=== PATIENT | female | born 1935 | race Caucasian/White ===

== ENCOUNTER → 2019-09-02 | Outpatient (CLI) | payer OTHER ==
[~2019-09-02] MED LIST: B12,B-12,B 12500 MC1 PO; COUMADIN6 MG PO; Coumadin10 MG PO; DIGOXIN125 MCG PO; DILTIAZEM CD180 MG PO; JANTOVEN5 MG PO; LASIX20 MG PO; LOPRESSOR100 M1 PO; LOPRESSOR50 M1 PO; LOVASTATIN40 MG PO; MIRTAZAPINE15 M2 PO; NAMENDA-5 PO; RIVASTIGMINE1 EAC1 T; SYNTHROID,LEVO75 MCG PO; SYNTHROID,LEVO88 MCG PO; VIBRAMYCIN100 MG PO; VITAMIN D5000 UNI1 PO; ZANTAC 2525 MG PO; ZESTRIL10 MG PO; ZOCOR20 MG PO
[2019-09-02 09:53] LABS: INTERNATIONAL NORM RATIO 1.8 (2.0-3.5)
== END | disposition home or self-care (01) ==
LOC: LAB 00:08
PROVIDERS: Family Medicine
DX: I48.0 Paroxysmal atrial fibrillation (principal)

== ENCOUNTER → 2019-11-25 | Outpatient (CLI) | payer OTHER | END | disposition home or self-care (01) | LOC: RESCLI 01:21 | DX: I48.91 Unspecified atrial fibrillation (principal); E78.5 Hyperlipidemia, unspecified; R44.3 Hallucinations, unspecified; K21.9 Gastro-esophageal reflux disease without esophagitis; M79.89 Other specified soft tissue disorders; I10 Essential (primary) hypertension; E03.9 Hypothyroidism, unspecified; Z79.899 Other long term (current) drug therapy; Z90.710 Acquired absence of both cervix and uterus; Z98.890 Other specified postprocedural states ==

== ENCOUNTER → 2020-04-12 | Outpatient (CLI) | payer OTHER | END | disposition home or self-care (01) | LOC: RESCLI 05:09 | PROVIDERS: ATTEND Student in an Organized Health Care Education/Training Program | DX: I48.91 Unspecified atrial fibrillation (principal); I10 Essential (primary) hypertension; R44.3 Hallucinations, unspecified; K21.9 Gastro-esophageal reflux disease without esophagitis; E78.5 Hyperlipidemia, unspecified; E03.9 Hypothyroidism, unspecified; M79.89 Other specified soft tissue disorders; L85.3 Xerosis cutis ==

== ENCOUNTER → 2020-06-20 | Outpatient (CLI) | payer OTHER ==
[2020-06-20 11:59] LABS: INTERNATIONAL NORM RATIO 1.9 (2.0-3.5)
== END | disposition home or self-care (01) ==
LOC: LAB 01:23
PROVIDERS: ATTEND Family Medicine
DX: I48.0 Paroxysmal atrial fibrillation (principal); Z79.01 Long term (current) use of anticoagulants

== ENCOUNTER → 2020-12-15 | Outpatient (CLI) | payer OTHER ==
[~2020-12-15] MED LIST changes: +INVEGA3 MG PO; +METOPROLOL SUCC25 M2 PO; +PEPCID20 MG PO
== END | disposition home or self-care (01) ==
LOC: RESCLI 00:40
PROVIDERS: ATTEND Internal Medicine
DX: F33.3 Major depressive disorder, recurrent, severe with psychotic symptoms (principal); F03.90 Unspecified dementia, unspecified severity, without behavioral disturbance, psychotic disturbance, mood disturbance, and anxiety; I48.91 Unspecified atrial fibrillation; E78.5 Hyperlipidemia, unspecified; K21.9 Gastro-esophageal reflux disease without esophagitis; I10 Essential (primary) hypertension; E03.9 Hypothyroidism, unspecified; Z90.710 Acquired absence of both cervix and uterus; Z98.890 Other specified postprocedural states

== ENCOUNTER 2021-02-14 16:25 | Inpatient (IN) | payer OTHER ==
[~2021-02-14] VITALS: Ht 160 cm; Wt 66.7 kg
[~2021-02-14 16:25] MED LIST changes: -INVEGA3 MG PO; -METOPROLOL SUCC25 M2 PO; -PEPCID20 MG PO
[2021-02-14 16:31] VITALS: BP 110/65
[2021-02-14 17:34] LABS: BASO % 0.2 % (0.0-1.0); HEMATOCRIT 42.1 % (37.0-47.0); LYMPH # 0.4 10*3/uL (1.3-4.4); LYMPH % 6.4 % (27.0-41.0); MEAN CELL VOLUME 90.7 fl (81.0-99.0); MEAN CORPUSCULAR HGB 29.7 pg (27.0-31.0); MEAN CORPUSCULAR HGB CONC 32.8 g/dl (33.0-37.0); MEAN PLATELET VOLUME 12.2 fl (9.6-12.3); MONO # 0.5 10*3/uL (0.1-1.0); MONO % 8.6 % (3.0-9.0); NEUT % 84.5 % (47.0-73.0); PLATELET COUNT AUTOMATED 139 10*3/uL (130-400); RED BLOOD COUNT 4.64 10*6/uL (4.10-5.10); RED CELL DISTRI WIDTH 15.8 % (0-14.5)
[2021-02-14 17:55] LABS: ALBUMIN 3.2 gm/dl (3.1-4.5); ALKALINE PHOSPHATASE 92 U/L (45-117); BUN 26 mg/dl (7-24); CHLORIDE 106 mmol/L (98-107); CREATININE 0.91 mg/dL (0.55-1.02); LIPASE 135 U/L (73-393); SGOT/AST 23 IU/L (3-35); SGPT/ALT 26 U/L (12-78); SODIUM 139 mmol/L (136-145); TOTAL PROTEIN 7.1 gm/dL (6.4-8.2); TROPONIN I 0.043 ng/ml (<0.045)
[2021-02-14 19:17] VITALS: BP 99/76
[2021-02-14 20:41] LABS: INTERNATIONAL NORM RATIO 1.5 (2.0-3.5)
[2021-02-15 00:24] VITALS: BP 123/51
[2021-02-15 03:45] LABS: BILIRUBIN Negative (Negative); BLOOD Negative (Negative); CLARITY Clear (Clear); COLOR Dark Yellow (Yellow); GLUCOSE Negative (Negative); KETONE Trace (Negative); LEUKO ESTERASE Negative (Negative); NITRITE Negative (Negative); SPECIFIC GRAVITY 1.025 (1.001-1.030)
[2021-02-15 03:51] LABS: EPITHELIAL CELLS 21-30
[2021-02-15 03:52] LABS: BACTERIA 1+
[2021-02-15 05:17] VITALS: BP 114/71
[2021-02-15 05:45] LABS: BUN 28 mg/dl (7-24); CHLORIDE 107 mmol/L (98-107); CREATININE 0.82 mg/dL (0.55-1.02); POTASSIUM 3.8 mmol/L (3.5-5.1); SODIUM 140 mmol/L (136-145)
[2021-02-15 05:48] LABS: TROPONIN I 0.058 ng/ml (<0.045)
[2021-02-15 06:18] LABS: BASO % 0.2 % (0.0-1.0); EOS % 0.2 % (1.0-4.0); HEMATOCRIT 41.2 % (37.0-47.0); LYMPH # 0.5 10*3/uL (1.3-4.4); LYMPH % 11.1 % (27.0-41.0); MEAN CELL VOLUME 92.4 fl (81.0-99.0); MEAN CORPUSCULAR HGB 30.3 pg (27.0-31.0); MEAN CORPUSCULAR HGB CONC 32.8 g/dl (33.0-37.0); MEAN PLATELET VOLUME 12.4 fl (9.6-12.3); MONO # 0.7 10*3/uL (0.1-1.0); MONO % 14.3 % (3.0-9.0); NEUT # 3.5 10*3/uL (2.3-7.9); PLATELET COUNT AUTOMATED 114 10*3/uL (130-400); RED BLOOD COUNT 4.46 10*6/uL (4.10-5.10); RED CELL DISTRI WIDTH 15.8 % (0-14.5); WHITE BLOOD COUNT 4.7 10*3/uL (4.8-10.8)
[2021-02-15 06:52] LABS: VITAMIN D, 25-HYDROXY 13.3 ng/mL (30-100)
[2021-02-15 07:32] VITALS: BP 134/79
[2021-02-15 14:08] VITALS: BP 134/78
[2021-02-15] MEDS ORDERED: METOPROLOL SUCC25 M2 PO (16:33)
[2021-02-15] MEDS ORDERED: INVEGA3 MG PO (16:40)
[2021-02-15] MEDS ORDERED: PEPCID20 MG PO (16:41)
[2021-02-15 20:00] VITALS: BP 172/95
[2021-02-16] VITALS (21 sets, daily range): BP systolic 61–154; BP diastolic 29–97
[2021-02-16 06:11] LABS: ALBUMIN 2.6 gm/dl (3.1-4.5); BUN 20 mg/dl (7-24); CHLORIDE 102 mmol/L (98-107); CREATININE 0.71 mg/dL (0.55-1.02); POTASSIUM 3.7 mmol/L (3.5-5.1); SGOT/AST 23 IU/L (3-35); SGPT/ALT 20 U/L (12-78); SODIUM 135 mmol/L (136-145)
[2021-02-16 06:13] LABS: ALKALINE PHOSPHATASE 78 U/L (45-117)
[2021-02-16 06:21] LABS: HEMATOCRIT 38.1 % (37.0-47.0); LYMPH # 0.4 10*3/uL (1.3-4.4); MEAN CELL VOLUME 90.5 fl (81.0-99.0); MEAN CORPUSCULAR HGB 29.5 pg (27.0-31.0); MEAN CORPUSCULAR HGB CONC 32.5 g/dl (33.0-37.0); MEAN PLATELET VOLUME 12.5 fl (9.6-12.3); MONO # 0.7 10*3/uL (0.1-1.0); MONO % 11.2 % (3.0-9.0); NEUT % 81.3 % (47.0-73.0); PLATELET COUNT AUTOMATED 105 10*3/uL (130-400); RED BLOOD COUNT 4.21 10*6/uL (4.10-5.10); RED CELL DISTRI WIDTH 15.7 % (0-14.5); WHITE BLOOD COUNT 6.2 10*3/uL (4.8-10.8)
[2021-02-16 08:48] LABS: INTERNATIONAL NORM RATIO 1.5 (2.0-3.5)
[2021-02-16 12:31] LABS: HEMATOCRIT 38.9 % (37.0-47.0); LYMPH # 0.5 10*3/uL (1.3-4.4); LYMPH % 7.2 % (27.0-41.0); MEAN CORPUSCULAR HGB CONC 31.9 g/dl (33.0-37.0); MONO # 0.6 10*3/uL (0.1-1.0); MONO % 8.9 % (3.0-9.0); NEUT # 5.7 10*3/uL (2.3-7.9); NEUT % 83.6 % (47.0-73.0); PLATELET COUNT AUTOMATED 97 10*3/uL (130-400); RED BLOOD COUNT 4.13 10*6/uL (4.10-5.10); RED CELL DISTRI WIDTH 15.7 % (0-14.5); WHITE BLOOD COUNT 6.8 10*3/uL (4.8-10.8)
[2021-02-16 12:35] LABS: MEAN CELL VOLUME 94.2 fl (81.0-99.0)
[2021-02-16 12:45] LABS: BUN 23 mg/dl (7-24); CHLORIDE 103 mmol/L (98-107); CREATININE 0.97 mg/dL (0.55-1.02); POTASSIUM 3.5 mmol/L (3.5-5.1); SODIUM 134 mmol/L (136-145)
[2021-02-16 12:51] LABS: TROPONIN I 0.233 ng/ml (<0.045)
[2021-02-16 23:04] LABS: BASO % 0.2 % (0.0-1.0); HEMATOCRIT 34.6 % (37.0-47.0); LYMPH # 0.4 10*3/uL (1.3-4.4); LYMPH % 7.4 % (27.0-41.0); MEAN CELL VOLUME 91.3 fl (81.0-99.0); MEAN CORPUSCULAR HGB 30.1 pg (27.0-31.0); MEAN CORPUSCULAR HGB CONC 32.9 g/dl (33.0-37.0); MEAN PLATELET VOLUME 12.4 fl (9.6-12.3); MONO # 0.6 10*3/uL (0.1-1.0); MONO % 10.1 % (3.0-9.0); NEUT # 4.4 10*3/uL (2.3-7.9); NEUT % 81.9 % (47.0-73.0); PLATELET COUNT AUTOMATED 93 10*3/uL (130-400); RED BLOOD COUNT 3.79 10*6/uL (4.10-5.10); RED CELL DISTRI WIDTH 15.6 % (0-14.5); WHITE BLOOD COUNT 5.4 10*3/uL (4.8-10.8)
[2021-02-16 23:27] LABS: ALBUMIN 2.9 gm/dl (3.1-4.5); ALKALINE PHOSPHATASE 64 U/L (45-117); BUN 25 mg/dl (7-24); CHLORIDE 106 mmol/L (98-107); CREATININE 0.87 mg/dL (0.55-1.02); POTASSIUM 3.6 mmol/L (3.5-5.1); SGOT/AST 22 IU/L (3-35); SGPT/ALT 17 U/L (12-78); SODIUM 139 mmol/L (136-145); TOTAL PROTEIN 5.6 gm/dL (6.4-8.2)
[2021-02-17] VITALS (12 sets, daily range): BP systolic 63–130; BP diastolic 35–72
[2021-02-17 03:18] LABS: HEMATOCRIT 37.9 % (37.0-47.0); LYMPH # 0.4 10*3/uL (1.3-4.4); LYMPH % 6.7 % (27.0-41.0); MEAN CELL VOLUME 93.1 fl (81.0-99.0); MEAN CORPUSCULAR HGB 29.2 pg (27.0-31.0); MEAN CORPUSCULAR HGB CONC 31.4 g/dl (33.0-37.0); MEAN PLATELET VOLUME 12.2 fl (9.6-12.3); MONO # 0.2 10*3/uL (0.1-1.0); MONO % 4.2 % (3.0-9.0); NEUT % 88.7 % (47.0-73.0); PLATELET COUNT AUTOMATED 96 10*3/uL (130-400); RED BLOOD COUNT 4.07 10*6/uL (4.10-5.10); RED CELL DISTRI WIDTH 15.7 % (0-14.5); WHITE BLOOD COUNT 5.7 10*3/uL (4.8-10.8)
[2021-02-17 03:33] LABS: BUN 25 mg/dl (7-24); CHLORIDE 106 mmol/L (98-107); CREATININE 0.83 mg/dL (0.55-1.02); INTERNATIONAL NORM RATIO 1.6 (2.0-3.5); POTASSIUM 3.8 mmol/L (3.5-5.1); SODIUM 138 mmol/L (136-145)
[2021-02-17 03:34] LABS: LDH 210 U/L (84-246)
[2021-02-18] VITALS: BP 92/50
[2021-02-18 04:00] VITALS: BP 102/59
[2021-02-18 05:16] LABS: BUN 32 mg/dl (7-24); CHLORIDE 107 mmol/L (98-107); CREATININE 0.73 mg/dL (0.55-1.02); SODIUM 138 mmol/L (136-145)
[2021-02-18 05:17] LABS: LDH 188 U/L (84-246)
[2021-02-18 06:22] LABS: HEMATOCRIT 37.2 % (37.0-47.0); LYMPH # 0.3 10*3/uL (1.3-4.4); LYMPH % 5.1 % (27.0-41.0); MEAN CELL VOLUME 92.3 fl (81.0-99.0); MEAN CORPUSCULAR HGB 29.8 pg (27.0-31.0); MEAN CORPUSCULAR HGB CONC 32.3 g/dl (33.0-37.0); MEAN PLATELET VOLUME 12.9 fl (9.6-12.3); MONO # 0.5 10*3/uL (0.1-1.0); MONO % 6.9 % (3.0-9.0); NEUT # 5.7 10*3/uL (2.3-7.9); NEUT % 87.5 % (47.0-73.0); PLATELET COUNT AUTOMATED 115 10*3/uL (130-400); RED BLOOD COUNT 4.03 10*6/uL (4.10-5.10); RED CELL DISTRI WIDTH 15.6 % (0-14.5); WHITE BLOOD COUNT 6.5 10*3/uL (4.8-10.8)
[2021-02-18 08:00] VITALS: BP 111/57
[2021-02-18 10:00] VITALS: BP 101/51
[2021-02-18 12:16] LABS: INTERNATIONAL NORM RATIO 2.2 (2.0-3.5)
[2021-02-18 14:48] VITALS: BP 94/60
[2021-02-18 20:00] VITALS: BP 104/58
[2021-02-19] VITALS: BP 94/50
[2021-02-19 08:00] VITALS: BP 110/72
[2021-02-19 10:46] LABS: INTERNATIONAL NORM RATIO 2.6 (2.0-3.5)
[2021-02-19 12:00] VITALS: BP 116/72
[2021-02-19 16:00] VITALS: BP 125/68
[2021-02-19 20:00] VITALS: BP 148/92
[2021-02-20] VITALS: BP 104/60
[2021-02-20 05:49] LABS: ALBUMIN 2.6 gm/dl (3.1-4.5); BUN 34 mg/dl (7-24); CHLORIDE 108 mmol/L (98-107); CREATININE 0.65 mg/dL (0.55-1.02); POTASSIUM 4.7 mmol/L (3.5-5.1); SGOT/AST 51 IU/L (3-35); SGPT/ALT 46 U/L (12-78); SODIUM 138 mmol/L (136-145); TOTAL PROTEIN 5.6 gm/dL (6.4-8.2)
[2021-02-20 05:50] LABS: ALKALINE PHOSPHATASE 66 U/L (45-117)
[2021-02-20 06:14] LABS: BASO % 0.2 % (0.0-1.0); HEMATOCRIT 41.5 % (37.0-47.0); LYMPH # 0.3 10*3/uL (1.3-4.4); LYMPH % 7.2 % (27.0-41.0); MEAN CORPUSCULAR HGB 29.5 pg (27.0-31.0); MONO # 0.4 10*3/uL (0.1-1.0); MONO % 8.4 % (3.0-9.0); NEUT # 3.5 10*3/uL (2.3-7.9); NEUT % 83.2 % (47.0-73.0); PLATELET COUNT AUTOMATED 154 10*3/uL (130-400); RED BLOOD COUNT 4.51 10*6/uL (4.10-5.10); RED CELL DISTRI WIDTH 15.6 % (0-14.5); WHITE BLOOD COUNT 4.2 10*3/uL (4.8-10.8)
[2021-02-20 08:00] VITALS: BP 122/87
[2021-02-20 10:42] LABS: INTERNATIONAL NORM RATIO 3.3 (2.0-3.5)
[2021-02-20 12:00] VITALS: BP 129/89
[2021-02-20 16:00] VITALS: BP 151/79
[2021-02-20 20:00] VITALS: BP 109/59
[2021-02-21] VITALS: BP 115/79
[2021-02-21 06:06] LABS: ALBUMIN 2.6 gm/dl (3.1-4.5); BUN 28 mg/dl (7-24); CHLORIDE 104 mmol/L (98-107); CREATININE 0.57 mg/dL (0.55-1.02); POTASSIUM 4.6 mmol/L (3.5-5.1); SGOT/AST 36 IU/L (3-35); SGPT/ALT 38 U/L (12-78); SODIUM 137 mmol/L (136-145)
[2021-02-21 06:07] LABS: ALKALINE PHOSPHATASE 61 U/L (45-117); TOTAL PROTEIN 5.7 gm/dL (6.4-8.2)
[2021-02-21 08:00] VITALS: BP 147/94
[2021-02-21 10:17] LABS: INTERNATIONAL NORM RATIO 3.8 (2.0-3.5)
[2021-02-21 12:00] VITALS: BP 137/92
[2021-02-21 16:00] VITALS: BP 119/78
[2021-02-21 20:00] VITALS: BP 114/81
[2021-02-22] VITALS: BP 124/83
[2021-02-22 05:48] LABS: ALBUMIN 2.7 gm/dl (3.1-4.5); BUN 29 mg/dl (7-24); CHLORIDE 108 mmol/L (98-107); CREATININE 0.59 mg/dL (0.55-1.02); POTASSIUM 4.6 mmol/L (3.5-5.1); SGOT/AST 36 IU/L (3-35); SGPT/ALT 46 U/L (12-78); SODIUM 139 mmol/L (136-145)
[2021-02-22 05:49] LABS: ALKALINE PHOSPHATASE 80 U/L (45-117); TOTAL PROTEIN 5.7 gm/dL (6.4-8.2)
[2021-02-22 06:12] LABS: BASO % 0.3 % (0.0-1.0); HEMATOCRIT 42.8 % (37.0-47.0); LYMPH # 0.4 10*3/uL (1.3-4.4); LYMPH % 7.4 % (27.0-41.0); MEAN CELL VOLUME 90.3 fl (81.0-99.0); MEAN CORPUSCULAR HGB 29.1 pg (27.0-31.0); MEAN CORPUSCULAR HGB CONC 32.2 g/dl (33.0-37.0); MEAN PLATELET VOLUME 11.6 fl (9.6-12.3); MONO # 0.4 10*3/uL (0.1-1.0); MONO % 6.7 % (3.0-9.0); NEUT % 83.6 % (47.0-73.0); PLATELET COUNT AUTOMATED 172 10*3/uL (130-400); RED BLOOD COUNT 4.74 10*6/uL (4.10-5.10); RED CELL DISTRI WIDTH 15.1 % (0-14.5); WHITE BLOOD COUNT 5.9 10*3/uL (4.8-10.8)
[2021-02-22 08:00] VITALS: BP 139/73
[2021-02-22 11:27] LABS: INTERNATIONAL NORM RATIO 2.5 (2.0-3.5)
[2021-02-22 12:00] VITALS: BP 120/84
[2021-02-22 16:00] VITALS: BP 122/69
[2021-02-22 20:00] VITALS: BP 132/70; BP 149/94
[2021-02-23] VITALS: BP 116/66
[2021-02-23 08:00] VITALS: BP 139/78
[2021-02-23 10:49] LABS: INTERNATIONAL NORM RATIO 2.4 (2.0-3.5)
[2021-02-23 12:00] VITALS: BP 122/90
[2021-02-23 16:00] VITALS: BP 106/57
[2021-02-23 20:00] VITALS: BP 142/80
[2021-02-24] VITALS: BP 128/61
[2021-02-24 06:49] LABS: BASO % 0.3 % (0.0-1.0); HEMATOCRIT 39.6 % (37.0-47.0); LYMPH # 0.4 10*3/uL (1.3-4.4); LYMPH % 5.7 % (27.0-41.0); MEAN CELL VOLUME 90.8 fl (81.0-99.0); MEAN CORPUSCULAR HGB 29.4 pg (27.0-31.0); MEAN CORPUSCULAR HGB CONC 32.3 g/dl (33.0-37.0); MEAN PLATELET VOLUME 11.6 fl (9.6-12.3); MONO # 0.5 10*3/uL (0.1-1.0); MONO % 6.5 % (3.0-9.0); NEUT # 6.1 10*3/uL (2.3-7.9); NEUT % 85.3 % (47.0-73.0); PLATELET COUNT AUTOMATED 191 10*3/uL (130-400); RED BLOOD COUNT 4.36 10*6/uL (4.10-5.10); RED CELL DISTRI WIDTH 15.3 % (0-14.5); WHITE BLOOD COUNT 7.2 10*3/uL (4.8-10.8)
[2021-02-24 07:19] LABS: BUN 19 mg/dl (7-24); CHLORIDE 107 mmol/L (98-107); CREATININE 0.51 mg/dL (0.55-1.02); POTASSIUM 4.8 mmol/L (3.5-5.1); SODIUM 139 mmol/L (136-145)
[2021-02-24 08:00] VITALS: BP 110/66
[2021-02-24 12:00] VITALS: BP 115/51
[2021-02-24 16:00] VITALS: BP 152/93
[2021-02-24 20:00] VITALS: BP 112/59
[2021-02-25] VITALS: BP 103/73
[2021-02-25 07:03] LABS: BASO % 0.2 % (0.0-1.0); HEMATOCRIT 41.7 % (37.0-47.0); LYMPH # 0.6 10*3/uL (1.3-4.4); LYMPH % 6.7 % (27.0-41.0); MEAN CELL VOLUME 90.8 fl (81.0-99.0); MEAN CORPUSCULAR HGB 29.4 pg (27.0-31.0); MEAN CORPUSCULAR HGB CONC 32.4 g/dl (33.0-37.0); MEAN PLATELET VOLUME 11.4 fl (9.6-12.3); MONO # 0.4 10*3/uL (0.1-1.0); MONO % 4.4 % (3.0-9.0); NEUT # 7.2 10*3/uL (2.3-7.9); NEUT % 86.4 % (47.0-73.0); PLATELET COUNT AUTOMATED 181 10*3/uL (130-400); RED BLOOD COUNT 4.59 10*6/uL (4.10-5.10); RED CELL DISTRI WIDTH 15.3 % (0-14.5); WHITE BLOOD COUNT 8.4 10*3/uL (4.8-10.8)
[2021-02-25 07:27] LABS: BUN 19 mg/dl (7-24); CHLORIDE 106 mmol/L (98-107); CREATININE 0.53 mg/dL (0.55-1.02); POTASSIUM 4.9 mmol/L (3.5-5.1); SODIUM 140 mmol/L (136-145)
[2021-02-25 08:00] VITALS: BP 124/79
[2021-02-25 09:31] LABS: INTERNATIONAL NORM RATIO 3.3 (2.0-3.5)
[2021-02-25 12:00] VITALS: BP 110/58
[2021-02-25 16:00] VITALS: BP 140/95
[2021-02-25 20:00] VITALS: BP 147/79
[2021-02-26] VITALS: BP 124/77
[2021-02-26 04:08] VITALS: BP 130/78
[2021-02-26 06:59] LABS: BASO % 0.1 % (0.0-1.0); EOS % 0.1 % (1.0-4.0); HEMATOCRIT 42.6 % (37.0-47.0); LYMPH # 0.6 10*3/uL (1.3-4.4); LYMPH % 6.3 % (27.0-41.0); MEAN CELL VOLUME 90.8 fl (81.0-99.0); MEAN CORPUSCULAR HGB 29.4 pg (27.0-31.0); MEAN CORPUSCULAR HGB CONC 32.4 g/dl (33.0-37.0); MEAN PLATELET VOLUME 10.9 fl (9.6-12.3); MONO # 0.9 10*3/uL (0.1-1.0); MONO % 9.9 % (3.0-9.0); NEUT # 7.2 10*3/uL (2.3-7.9); NEUT % 82.1 % (47.0-73.0); PLATELET COUNT AUTOMATED 201 10*3/uL (130-400); RED BLOOD COUNT 4.69 10*6/uL (4.10-5.10); RED CELL DISTRI WIDTH 15.4 % (0-14.5); WHITE BLOOD COUNT 8.8 10*3/uL (4.8-10.8)
[2021-02-26 07:10] LABS: INTERNATIONAL NORM RATIO 4.5 (2.0-3.5)
[2021-02-26 07:25] LABS: BUN 18 mg/dl (7-24); CHLORIDE 104 mmol/L (98-107); POTASSIUM 4.5 mmol/L (3.5-5.1); SODIUM 139 mmol/L (136-145)
[2021-02-26 08:00] VITALS: BP 136/89
[2021-02-26 12:00] VITALS: BP 114/66
[2021-02-26] MEDS ORDERED: ASPIRIN ADULT L81 M2 PO (12:44)
[2021-02-26 16:00] VITALS: BP 127/80
== END 2021-02-26 18:15 | DRG 177 ==
LOC: ED 16:25 → EDHOLD 18:51 → 4E 18:51 → 5E 18:51 → EDHOLD 02-15 08:59 → 5E 02-15 14:09 → 4E 02-16 13:34 → ICCU 02-16 22:08 → 4E 02-22 12:51
PROVIDERS: Emergency Medicine; Hospitalist; Internal Medicine; Internal Medicine Cardiovascular Disease; Student in an Organized Health Care Education/Training Program; ADMIT Internal Medicine; ATTEND Internal Medicine
PROC: 02HV33Z Insertion of Infusion Device into Superior Vena Cava, Percutaneous Approach (ICD-10-PCS; 2021-02-16)
PROC: B548ZZA Ultrasonography of Superior Vena Cava, Guidance (ICD-10-PCS; 2021-02-16)
PROC: 5A0945A Assistance with Respiratory Ventilation, 24-96 Consecutive Hours, High Flow/Velocity Cannula (ICD-10-PCS; 2021-02-21)
PROC: XW033E5 Introduction of Remdesivir Anti-infective into Peripheral Vein, Percutaneous Approach, New Technology Group 5 (ICD-10-PCS; 2021-02-21)
PROC: 5A0935A Assistance with Respiratory Ventilation, Less than 24 Consecutive Hours, High Flow/Velocity Cannula (ICD-10-PCS; principal; 2021-02-23)
DX: U07.1 COVID-19 (principal); J96.01 Acute respiratory failure with hypoxia; G93.41 Metabolic encephalopathy; E43 Unspecified severe protein-calorie malnutrition; J12.82 Pneumonia due to coronavirus disease 2019; I48.20 Chronic atrial fibrillation, unspecified; I48.21 Permanent atrial fibrillation; W19.XXXA Unspecified fall, initial encounter; I48.91 Unspecified atrial fibrillation; K44.9 Diaphragmatic hernia without obstruction or gangrene; R26.81 Unsteadiness on feet; R73.9 Hyperglycemia, unspecified; E53.8 Deficiency of other specified B group vitamins; S90.415A Abrasion, left lesser toe(s), initial encounter; D69.6 Thrombocytopenia, unspecified; E03.9 Hypothyroidism, unspecified; E87.8 Other disorders of electrolyte and fluid balance, not elsewhere classified; I10 Essential (primary) hypertension; I45.10 Unspecified right bundle-branch block; Z90.710 Acquired absence of both cervix and uterus; Y93.89 Activity, other specified; Y92.89 Other specified places as the place of occurrence of the external cause; Y99.8 Other external cause status; Z88.0 Allergy status to penicillin; Z88.2 Allergy status to sulfonamides; Z79.01 Long term (current) use of anticoagulants; Z79.899 Other long term (current) drug therapy; Z68.26 Body mass index [BMI] 26.0-26.9, adult; Z82.5 Family history of asthma and other chronic lower respiratory diseases

== ENCOUNTER → 2021-04-20 | Outpatient (CLI) | payer OTHER ==
[~2021-04-20] MED LIST changes: +ASPIRIN ADULT L81 M2 PO; +INVEGA3 MG PO; +METOPROLOL SUCC25 M2 PO; +PEPCID20 MG PO
[2021-04-20 11:44] LABS: BASO % 0.7 % (0.0-1.0); EOS # 0.1 10*3/uL (0.0-0.4); EOS % 1.4 % (1.0-4.0); HEMATOCRIT 38.8 % (37.0-47.0); LYMPH # 0.6 10*3/uL (1.3-4.4); LYMPH % 10.6 % (27.0-41.0); MEAN CELL VOLUME 94.2 fl (81.0-99.0); MEAN CORPUSCULAR HGB 29.9 pg (27.0-31.0); MEAN CORPUSCULAR HGB CONC 31.7 g/dl (33.0-37.0); MEAN PLATELET VOLUME 11.1 fl (9.6-12.3); MONO # 0.6 10*3/uL (0.1-1.0); MONO % 10.8 % (3.0-9.0); NEUT # 4.4 10*3/uL (2.3-7.9); NEUT % 76.2 % (47.0-73.0); PLATELET COUNT AUTOMATED 189 10*3/uL (130-400); RED BLOOD COUNT 4.12 10*6/uL (4.10-5.10); RED CELL DISTRI WIDTH 17.8 % (0-14.5); WHITE BLOOD COUNT 5.8 10*3/uL (4.8-10.8)
[2021-04-20 12:08] LABS: BUN 29 mg/dl (7-24); CHLORIDE 107 mmol/L (98-107); CREATININE 0.84 mg/dL (0.55-1.02); POTASSIUM 4.1 mmol/L (3.5-5.1); SGOT/AST 18 IU/L (3-35); SGPT/ALT 23 U/L (12-78); SODIUM 141 mmol/L (136-145)
[2021-04-20 12:10] LABS: ALKALINE PHOSPHATASE 82 U/L (45-117); TOTAL PROTEIN 6.3 gm/dL (6.4-8.2)
== END | disposition home or self-care (01) ==
LOC: RESCLI 00:40
PROVIDERS: Internal Medicine; ATTEND Internal Medicine
DX: I10 Essential (primary) hypertension (principal); E78.5 Hyperlipidemia, unspecified; E03.9 Hypothyroidism, unspecified; I48.91 Unspecified atrial fibrillation; R44.3 Hallucinations, unspecified; K21.9 Gastro-esophageal reflux disease without esophagitis; R60.0 Localized edema; H04.129 Dry eye syndrome of unspecified lacrimal gland; Z79.01 Long term (current) use of anticoagulants; Z79.899 Other long term (current) drug therapy; Z88.0 Allergy status to penicillin

== ENCOUNTER 2021-05-04 06:45 | Emergency (ER) | payer OTHER ==
[~2021-05-04] VITALS: Ht 160 cm; Wt 71.2 kg
[2021-05-04 07:31] LABS: BASO % 0.8 % (0.0-1.0); EOS # 0.1 10*3/uL (0.0-0.4); EOS % 2.7 % (1.0-4.0); HEMATOCRIT 41.9 % (37.0-47.0); LYMPH # 0.6 10*3/uL (1.3-4.4); LYMPH % 11.9 % (27.0-41.0); MEAN CELL VOLUME 93.9 fl (81.0-99.0); MEAN PLATELET VOLUME 10.9 fl (9.6-12.3); MONO # 0.5 10*3/uL (0.1-1.0); MONO % 10.4 % (3.0-9.0); NEUT # 3.8 10*3/uL (2.3-7.9); PLATELET COUNT AUTOMATED 163 10*3/uL (130-400); RED BLOOD COUNT 4.46 10*6/uL (4.10-5.10); RED CELL DISTRI WIDTH 16.5 % (0-14.5); WHITE BLOOD COUNT 5.1 10*3/uL (4.8-10.8)
[2021-05-04 07:44] LABS: ACT PARTIAL THROMBO TIME 33.7 SECONDS (20.0-32.1); INTERNATIONAL NORM RATIO 2.2 (2.0-3.5)
[2021-05-04 07:52] LABS: ALKALINE PHOSPHATASE 89 U/L (45-117); BUN 24 mg/dl (7-24); CHLORIDE 107 mmol/L (98-107); CREATININE 0.95 mg/dL (0.55-1.02); POTASSIUM 3.9 mmol/L (3.5-5.1); SGOT/AST 19 IU/L (3-35); SGPT/ALT 24 U/L (12-78); SODIUM 141 mmol/L (136-145); TOTAL PROTEIN 6.3 gm/dL (6.4-8.2)
[2021-05-04 08:46] LABS: BILIRUBIN Negative (Negative); BLOOD Negative (Negative); CLARITY Cloudy (Clear); COLOR Yellow (Yellow); GLUCOSE Negative (Negative); KETONE Negative (Negative); LEUKO ESTERASE Trace (Negative); NITRITE Negative (Negative)
[2021-05-04 09:03] LABS: BACTERIA 1+
== END 2021-05-04 09:30 | disposition home or self-care (01) ==
LOC: ED 06:45
PROVIDERS: Emergency Medicine
DX: H61.23 Impacted cerumen, bilateral (principal); R09.81 Nasal congestion; J90 Pleural effusion, not elsewhere classified; R26.9 Unspecified abnormalities of gait and mobility; E03.9 Hypothyroidism, unspecified; Z88.0 Allergy status to penicillin; Z88.2 Allergy status to sulfonamides; Z79.899 Other long term (current) drug therapy

== ENCOUNTER 2021-05-29 16:01 | Inpatient (IN) | payer OTHER ==
[~2021-05-29] VITALS: Ht 160 cm; Wt 66.0 kg
[2021-05-29 16:34] VITALS: BP 98/61
[2021-05-29 16:39] LABS: BASO % 0.5 % (0.0-1.0); EOS # 0.1 10*3/uL (0.0-0.4); EOS % 1.9 % (1.0-4.0); HEMATOCRIT 41.2 % (37.0-47.0); LYMPH # 0.6 10*3/uL (1.3-4.4); LYMPH % 9.3 % (27.0-41.0); MEAN CELL VOLUME 94.9 fl (81.0-99.0); MEAN CORPUSCULAR HGB 30.2 pg (27.0-31.0); MEAN CORPUSCULAR HGB CONC 31.8 g/dl (33.0-37.0); MEAN PLATELET VOLUME 11.2 fl (9.6-12.3); MONO # 0.7 10*3/uL (0.1-1.0); MONO % 10.5 % (3.0-9.0); NEUT % 77.6 % (47.0-73.0); PLATELET COUNT AUTOMATED 167 10*3/uL (130-400); RED BLOOD COUNT 4.34 10*6/uL (4.10-5.10); WHITE BLOOD COUNT 6.5 10*3/uL (4.8-10.8)
[2021-05-29 16:50] LABS: ACT PARTIAL THROMBO TIME 37.1 SECONDS (20.0-32.1); INTERNATIONAL NORM RATIO 2.6 (2.0-3.5)
[2021-05-29 16:54] LABS: ALBUMIN 3.1 gm/dl (3.1-4.5); ALKALINE PHOSPHATASE 106 U/L (45-117); BUN 30 mg/dl (7-24); CHLORIDE 110 mmol/L (98-107); POTASSIUM 4.1 mmol/L (3.5-5.1); SGOT/AST 19 IU/L (3-35); SGPT/ALT 23 U/L (12-78); SODIUM 143 mmol/L (136-145); TOTAL PROTEIN 6.6 gm/dL (6.4-8.2)
[2021-05-29 17:46] VITALS: BP 106/50
[2021-05-29 18:36] VITALS: BP 121/69
[2021-05-29 20:00] VITALS: BP 124/52
[2021-05-30] VITALS: BP 109/68
[2021-05-30 06:30] LABS: BASO % 0.6 % (0.0-1.0); EOS # 0.2 10*3/uL (0.0-0.4); EOS % 3.7 % (1.0-4.0); HEMATOCRIT 41.1 % (37.0-47.0); LYMPH # 0.6 10*3/uL (1.3-4.4); MEAN CELL VOLUME 94.7 fl (81.0-99.0); MEAN CORPUSCULAR HGB 30.2 pg (27.0-31.0); MEAN CORPUSCULAR HGB CONC 31.9 g/dl (33.0-37.0); MEAN PLATELET VOLUME 11.3 fl (9.6-12.3); MONO # 0.5 10*3/uL (0.1-1.0); MONO % 9.6 % (3.0-9.0); NEUT # 3.8 10*3/uL (2.3-7.9); NEUT % 73.9 % (47.0-73.0); PLATELET COUNT AUTOMATED 155 10*3/uL (130-400); RED BLOOD COUNT 4.34 10*6/uL (4.10-5.10); WHITE BLOOD COUNT 5.1 10*3/uL (4.8-10.8)
[2021-05-30 06:38] LABS: INTERNATIONAL NORM RATIO 2.3 (2.0-3.5)
[2021-05-30 07:00] LABS: ALKALINE PHOSPHATASE 93 U/L (45-117); BUN 27 mg/dl (7-24); CHLORIDE 107 mmol/L (98-107); CHOLESTEROL 117 mg/dL (<200); CREATININE 0.96 mg/dL (0.55-1.02); FREE T4 1.53 ng/dl (0.76-1.46); LDL CHOLESTEROL 47 mg/dL (9-159); POTASSIUM 3.8 mmol/L (3.5-5.1); SGOT/AST 18 IU/L (3-35); SGPT/ALT 22 U/L (12-78); SODIUM 143 mmol/L (136-145); TOTAL PROTEIN 6.2 gm/dL (6.4-8.2); TRIGLYCERIDES 76 mg/dl (<150)
[2021-05-30 08:00] VITALS: BP 108/57
[2021-05-30] MEDS ORDERED: LOPRESSOR25 MG PO (08:28)
[2021-05-30 12:00] VITALS: BP 97/62
[2021-05-30 16:00] VITALS: BP 110/64
[2021-05-30 20:00] VITALS: BP 94/54
[2021-05-31] VITALS: BP 94/52
[2021-05-31 06:38] LABS: BASO % 0.3 % (0.0-1.0); EOS # 0.2 10*3/uL (0.0-0.4); EOS % 2.6 % (1.0-4.0); HEMATOCRIT 39.5 % (37.0-47.0); LYMPH # 0.8 10*3/uL (1.3-4.4); LYMPH % 11.6 % (27.0-41.0); MEAN CELL VOLUME 93.8 fl (81.0-99.0); MEAN CORPUSCULAR HGB 30.2 pg (27.0-31.0); MEAN CORPUSCULAR HGB CONC 32.2 g/dl (33.0-37.0); MEAN PLATELET VOLUME 10.9 fl (9.6-12.3); MONO # 0.8 10*3/uL (0.1-1.0); MONO % 12.5 % (3.0-9.0); NEUT # 4.8 10*3/uL (2.3-7.9); NEUT % 72.7 % (47.0-73.0); PLATELET COUNT AUTOMATED 159 10*3/uL (130-400); RED BLOOD COUNT 4.21 10*6/uL (4.10-5.10); RED CELL DISTRI WIDTH 14.9 % (0-14.5); WHITE BLOOD COUNT 6.6 10*3/uL (4.8-10.8)
[2021-05-31 07:09] LABS: ALBUMIN 2.9 gm/dl (3.1-4.5); BUN 28 mg/dl (7-24); CHLORIDE 105 mmol/L (98-107); CREATININE 0.96 mg/dL (0.55-1.02); POTASSIUM 4.1 mmol/L (3.5-5.1); SGPT/ALT 21 U/L (12-78); SODIUM 141 mmol/L (136-145)
[2021-05-31 07:12] LABS: ALKALINE PHOSPHATASE 90 U/L (45-117); SGOT/AST 15 IU/L (3-35); TOTAL PROTEIN 6.3 gm/dL (6.4-8.2)
[2021-05-31 08:00] VITALS: BP 119/50
[2021-05-31 12:00] VITALS: BP 108/54
[2021-05-31 16:00] VITALS: BP 98/38
[2021-05-31 20:00] VITALS: BP 108/65
[2021-06-01] VITALS: BP 108/56
[2021-06-01 06:43] LABS: BASO % 0.3 % (0.0-1.0); EOS # 0.1 10*3/uL (0.0-0.4); EOS % 1.3 % (1.0-4.0); HEMATOCRIT 42.6 % (37.0-47.0); LYMPH # 0.8 10*3/uL (1.3-4.4); LYMPH % 9.7 % (27.0-41.0); MEAN CELL VOLUME 94.9 fl (81.0-99.0); MEAN CORPUSCULAR HGB 30.1 pg (27.0-31.0); MEAN CORPUSCULAR HGB CONC 31.7 g/dl (33.0-37.0); MONO # 0.9 10*3/uL (0.1-1.0); MONO % 12.1 % (3.0-9.0); NEUT # 5.9 10*3/uL (2.3-7.9); NEUT % 76.2 % (47.0-73.0); PLATELET COUNT AUTOMATED 149 10*3/uL (130-400); RED BLOOD COUNT 4.49 10*6/uL (4.10-5.10); RED CELL DISTRI WIDTH 14.6 % (0-14.5); WHITE BLOOD COUNT 7.8 10*3/uL (4.8-10.8)
[2021-06-01 06:56] LABS: ALBUMIN 2.9 gm/dl (3.1-4.5); BUN 30 mg/dl (7-24); CHLORIDE 102 mmol/L (98-107); POTASSIUM 4.2 mmol/L (3.5-5.1); SODIUM 139 mmol/L (136-145)
[2021-06-01 06:57] LABS: INTERNATIONAL NORM RATIO 2.2 (2.0-3.5)
[2021-06-01 07:04] LABS: ALKALINE PHOSPHATASE 94 U/L (45-117); CREATININE 0.86 mg/dL (0.55-1.02); SGOT/AST 13 IU/L (3-35); SGPT/ALT 19 U/L (12-78); TOTAL PROTEIN 6.4 gm/dL (6.4-8.2)
[2021-06-01 08:00] VITALS: BP 116/71
[2021-06-01 12:00] VITALS: BP 108/61
[2021-06-01 16:00] VITALS: BP 94/54
[2021-06-01 20:00] VITALS: BP 112/74
[2021-06-02] VITALS: BP 90/55
[2021-06-02 06:40] LABS: BASO % 0.3 % (0.0-1.0); EOS # 0.1 10*3/uL (0.0-0.4); EOS % 0.6 % (1.0-4.0); HEMATOCRIT 37.5 % (37.0-47.0); LYMPH # 0.6 10*3/uL (1.3-4.4); LYMPH % 6.7 % (27.0-41.0); MEAN CELL VOLUME 91.9 fl (81.0-99.0); MEAN CORPUSCULAR HGB 30.4 pg (27.0-31.0); MEAN CORPUSCULAR HGB CONC 33.1 g/dl (33.0-37.0); MEAN PLATELET VOLUME 11.5 fl (9.6-12.3); MONO # 1.4 10*3/uL (0.1-1.0); MONO % 14.8 % (3.0-9.0); NEUT # 7.3 10*3/uL (2.3-7.9); NEUT % 77.3 % (47.0-73.0); PLATELET COUNT AUTOMATED 153 10*3/uL (130-400); RED BLOOD COUNT 4.08 10*6/uL (4.10-5.10); RED CELL DISTRI WIDTH 14.7 % (0-14.5); WHITE BLOOD COUNT 9.4 10*3/uL (4.8-10.8)
[2021-06-02 06:56] LABS: ALBUMIN 2.6 gm/dl (3.1-4.5); ALKALINE PHOSPHATASE 89 U/L (45-117); BUN 33 mg/dl (7-24); CHLORIDE 98 mmol/L (98-107); CREATININE 0.91 mg/dL (0.55-1.02); POTASSIUM 3.8 mmol/L (3.5-5.1); SGOT/AST 15 IU/L (3-35); SGPT/ALT 16 U/L (12-78); SODIUM 137 mmol/L (136-145)
[2021-06-02 08:00] VITALS: BP 119/67
[2021-06-02 12:00] VITALS: BP 112/81
[2021-06-02 16:00] VITALS: BP 128/65
[2021-06-02 20:00] VITALS: BP 132/65
[2021-06-03] VITALS: BP 109/67
[2021-06-03 06:39] LABS: HEMATOCRIT 38.5 % (37.0-47.0); MEAN CELL VOLUME 92.5 fl (81.0-99.0); MEAN CORPUSCULAR HGB 29.8 pg (27.0-31.0); MEAN CORPUSCULAR HGB CONC 32.2 g/dl (33.0-37.0); MEAN PLATELET VOLUME 11.8 fl (9.6-12.3); PLATELET COUNT AUTOMATED 145 10*3/uL (130-400); RED BLOOD COUNT 4.16 10*6/uL (4.10-5.10); RED CELL DISTRI WIDTH 14.6 % (0-14.5); WHITE BLOOD COUNT 11.7 10*3/uL (4.8-10.8)
[2021-06-03 06:51] LABS: BUN 35 mg/dl (7-24); CHLORIDE 99 mmol/L (98-107); CREATININE 0.94 mg/dL (0.55-1.02); POTASSIUM 3.9 mmol/L (3.5-5.1); SODIUM 138 mmol/L (136-145)
[2021-06-03 07:54] LABS: TOTAL CELLS COUNTED 100 #CELLS
[2021-06-03 07:55] LABS: OVALOCYTES FEW; PLATELET SUFFICIENCY NORMAL (NORMAL); POLYCHROMASIA SLIGHT
[2021-06-03 08:00] VITALS: BP 117/54
[2021-06-03 12:00] VITALS: BP 111/48
[2021-06-03 16:00] VITALS: BP 101/55
[2021-06-03 20:00] VITALS: BP 108/72
[2021-06-04] VITALS: BP 100/50
[2021-06-04 06:37] LABS: BASO % 0.3 % (0.0-1.0); EOS % 0.3 % (1.0-4.0); HEMATOCRIT 37.3 % (37.0-47.0); LYMPH # 0.6 10*3/uL (1.3-4.4); LYMPH % 7.3 % (27.0-41.0); MEAN CELL VOLUME 93.5 fl (81.0-99.0); MEAN CORPUSCULAR HGB 29.8 pg (27.0-31.0); MEAN CORPUSCULAR HGB CONC 31.9 g/dl (33.0-37.0); MEAN PLATELET VOLUME 11.5 fl (9.6-12.3); MONO # 1.3 10*3/uL (0.1-1.0); MONO % 15.9 % (3.0-9.0); NEUT # 6.1 10*3/uL (2.3-7.9); NEUT % 75.7 % (47.0-73.0); PLATELET COUNT AUTOMATED 158 10*3/uL (130-400); RED BLOOD COUNT 3.99 10*6/uL (4.10-5.10); RED CELL DISTRI WIDTH 14.2 % (0-14.5)
[2021-06-04 06:55] LABS: BUN 41 mg/dl (7-24); CHLORIDE 99 mmol/L (98-107); CREATININE 0.85 mg/dL (0.55-1.02); POTASSIUM 3.6 mmol/L (3.5-5.1); SODIUM 136 mmol/L (136-145)
[2021-06-04 07:16] LABS: INTERNATIONAL NORM RATIO 2.5 (2.0-3.5)
[2021-06-04 08:00] VITALS: BP 103/57
[2021-06-04 12:00] VITALS: BP 112/70
[2021-06-04 16:00] VITALS: BP 95/66
[2021-06-04 20:00] VITALS: BP 129/78
[2021-06-05] VITALS: BP 112/60
[2021-06-05 06:41] LABS: MEAN CELL VOLUME 94.4 fl (81.0-99.0); MEAN CORPUSCULAR HGB 30.1 pg (27.0-31.0); MEAN CORPUSCULAR HGB CONC 31.9 g/dl (33.0-37.0); MEAN PLATELET VOLUME 10.8 fl (9.6-12.3); PLATELET COUNT AUTOMATED 174 10*3/uL (130-400); RED BLOOD COUNT 3.92 10*6/uL (4.10-5.10); RED CELL DISTRI WIDTH 14.2 % (0-14.5); WHITE BLOOD COUNT 9.5 10*3/uL (4.8-10.8)
[2021-06-05 06:57] LABS: BUN 45 mg/dl (7-24); CHLORIDE 98 mmol/L (98-107); CREATININE 0.86 mg/dL (0.55-1.02); POTASSIUM 3.9 mmol/L (3.5-5.1); SODIUM 135 mmol/L (136-145)
[2021-06-05 07:04] LABS: INTERNATIONAL NORM RATIO 3.6 (2.0-3.5)
[2021-06-05 08:00] VITALS: BP 112/68
[2021-06-05 08:03] LABS: OVALOCYTES FEW; PLATELET SUFFICIENCY NORMAL (NORMAL); POLYCHROMASIA SLIGHT; TOTAL CELLS COUNTED 100 #CELLS
[2021-06-05 12:00] VITALS: BP 138/71
[2021-06-05 16:00] VITALS: BP 123/50
[2021-06-05 20:00] VITALS: BP 111/73
[2021-06-06] VITALS (7 sets, daily range): BP systolic 92–121; BP diastolic 40–66
[2021-06-06 06:33] LABS: BASO % 0.3 % (0.0-1.0); EOS # 0.1 10*3/uL (0.0-0.4); EOS % 1.7 % (1.0-4.0); HEMATOCRIT 37.6 % (37.0-47.0); LYMPH # 0.6 10*3/uL (1.3-4.4); LYMPH % 9.3 % (27.0-41.0); MEAN CORPUSCULAR HGB 29.8 pg (27.0-31.0); MEAN CORPUSCULAR HGB CONC 31.6 g/dl (33.0-37.0); MEAN PLATELET VOLUME 11.3 fl (9.6-12.3); MONO % 17.1 % (3.0-9.0); NEUT # 4.3 10*3/uL (2.3-7.9); NEUT % 71.1 % (47.0-73.0); PLATELET COUNT AUTOMATED 186 10*3/uL (130-400)
[2021-06-06 06:40] LABS: INTERNATIONAL NORM RATIO 3.4 (2.0-3.5)
[2021-06-06 06:45] LABS: BUN 48 mg/dl (7-24); CHLORIDE 99 mmol/L (98-107); CREATININE 0.94 mg/dL (0.55-1.02); POTASSIUM 3.8 mmol/L (3.5-5.1); SODIUM 137 mmol/L (136-145)
[2021-06-06] MEDS ORDERED: FUROSEMIDE40 MG PO (12:03)
[2021-06-06 14:03] LABS: BILIRUBIN 1+ (Negative); BLOOD Negative (Negative); CLARITY Clear (Clear); COLOR Dark Yellow (Yellow); GLUCOSE Negative (Negative); KETONE Negative (Negative); LEUKO ESTERASE 1+ (Negative); NITRITE Negative (Negative)
[2021-06-06 14:34] LABS: BACTERIA TRACE
[2021-06-07] VITALS: BP 111/82
[2021-06-07 07:44] LABS: BUN 41 mg/dl (7-24); CHLORIDE 100 mmol/L (98-107); CREATININE 0.85 mg/dL (0.55-1.02); POTASSIUM 3.7 mmol/L (3.5-5.1); SODIUM 137 mmol/L (136-145)
[2021-06-07 08:00] VITALS: BP 100/62; BP 112/74
[2021-06-07 09:35] LABS: INTERNATIONAL NORM RATIO 3.6 (2.0-3.5)
[2021-06-07 12:00] VITALS: BP 96/60
== END 2021-06-07 16:06 | DRG 291 ==
LOC: ED 16:01 → EDHOLD 17:41 → 5E 17:41
PROVIDERS: Emergency Medicine; Family Medicine; Internal Medicine; Student in an Organized Health Care Education/Training Program; ADMIT Student in an Organized Health Care Education/Training Program; ATTEND Student in an Organized Health Care Education/Training Program
DX: I50.31 Acute diastolic (congestive) heart failure (principal); J96.01 Acute respiratory failure with hypoxia; E87.2 Acidosis; E44.0 Moderate protein-calorie malnutrition; I48.20 Chronic atrial fibrillation, unspecified; Z20.822 Contact with and (suspected) exposure to COVID-19; F41.9 Anxiety disorder, unspecified; K44.9 Diaphragmatic hernia without obstruction or gangrene; R00.1 Bradycardia, unspecified; E83.42 Hypomagnesemia; E78.49 Other hyperlipidemia; E03.9 Hypothyroidism, unspecified; I95.9 Hypotension, unspecified; Z88.0 Allergy status to penicillin; Z88.2 Allergy status to sulfonamides; Z88.1 Allergy status to other antibiotic agents; Z90.710 Acquired absence of both cervix and uterus; Z68.27 Body mass index [BMI] 27.0-27.9, adult; E78.5 Hyperlipidemia, unspecified

== ENCOUNTER 2021-08-26 15:41 | Emergency (ER) | payer OTHER ==
[~2021-08-26] VITALS: Ht 160 cm; Wt 65.8 kg
[~2021-08-26 15:41] MED LIST changes: +FUROSEMIDE40 MG PO; +LOPRESSOR25 MG PO
== END 2021-08-26 18:29 | disposition home or self-care (01) ==
LOC: ED 15:41
DX: S62.614A Displaced fracture of proximal phalanx of right ring finger, initial encounter for closed fracture (principal); Z88.0 Allergy status to penicillin; Z88.2 Allergy status to sulfonamides; Z79.899 Other long term (current) drug therapy; Z90.710 Acquired absence of both cervix and uterus; Z98.890 Other specified postprocedural states; W18.39XA Other fall on same level, initial encounter; Y93.89 Activity, other specified; Y92.89 Other specified places as the place of occurrence of the external cause; Y99.8 Other external cause status

== ENCOUNTER 2021-10-04 18:50 | Emergency (ER) | payer OTHER ==
[~2021-10-04] VITALS: Ht 160 cm; Wt 63.5 kg
[2021-10-04] MEDS ORDERED: RISPERDAL0.5 MG PO (19:00)
[2021-10-04] MEDS ORDERED: VITAMIN D3125 MCG PO (19:00)
[2021-10-04] MEDS ORDERED: VISTARIL25 MG PO (19:01)
== END 2021-10-04 23:15 | disposition home or self-care (01) ==
LOC: ED 18:50
DX: S62.102A Fracture of unspecified carpal bone, left wrist, initial encounter for closed fracture (principal); Z88.0 Allergy status to penicillin; Z88.2 Allergy status to sulfonamides; Z79.899 Other long term (current) drug therapy; Z90.710 Acquired absence of both cervix and uterus; Z98.890 Other specified postprocedural states; W18.39XA Other fall on same level, initial encounter; Y93.89 Activity, other specified; Y92.89 Other specified places as the place of occurrence of the external cause; Y99.8 Other external cause status

== ENCOUNTER → 2021-10-26 | Outpatient (CLI) | payer OTHER ==
[~2021-10-26] MED LIST changes: +RISPERDAL0.5 MG PO; +VISTARIL25 MG PO; +VITAMIN D3125 MCG PO
== END | disposition home or self-care (01) ==
LOC: RESCLI 00:44
PROVIDERS: ATTEND Internal Medicine
DX: E03.9 Hypothyroidism, unspecified (principal); R60.0 Localized edema; I48.91 Unspecified atrial fibrillation; K21.9 Gastro-esophageal reflux disease without esophagitis; E55.9 Vitamin D deficiency, unspecified; E78.2 Mixed hyperlipidemia; F03.90 Unspecified dementia, unspecified severity, without behavioral disturbance, psychotic disturbance, mood disturbance, and anxiety; K59.00 Constipation, unspecified; Z78.0 Asymptomatic menopausal state; Z79.01 Long term (current) use of anticoagulants; Z79.899 Other long term (current) drug therapy; Z90.710 Acquired absence of both cervix and uterus; Z98.890 Other specified postprocedural states

== ENCOUNTER → 2022-01-30 | Outpatient (CLI) | payer OTHER | END | disposition home or self-care (01) | LOC: RAD 14:34 | PROVIDERS: ATTEND Family Medicine | DX: J90 Pleural effusion, not elsewhere classified (principal) ==

== ENCOUNTER → 2022-04-18 | Outpatient (CLI) | payer OTHER ==
[2022-04-18 13:46] LABS: BASO % 0.5 % (0.0-1.0); EOS # 0.1 10*3/uL (0.0-0.4); EOS % 1.9 % (1.0-4.0); HEMATOCRIT 42.4 % (37.0-47.0); LYMPH # 0.9 10*3/uL (1.3-4.4); LYMPH % 15.4 % (27.0-41.0); MEAN CELL VOLUME 90.8 fl (81.0-99.0); MEAN PLATELET VOLUME 10.1 fl (9.6-12.3); MONO # 0.6 10*3/uL (0.1-1.0); MONO % 11.3 % (3.0-9.0); NEUT % 70.7 % (47.0-73.0); PLATELET COUNT AUTOMATED 182 10*3/uL (130-400); RED BLOOD COUNT 4.67 10*6/uL (4.10-5.10); RED CELL DISTRI WIDTH 15.8 % (0-14.5); WHITE BLOOD COUNT 5.7 10*3/uL (4.8-10.8)
[2022-04-18 13:56] LABS: INTERNATIONAL NORM RATIO 2.4 (2.0-3.5)
[2022-04-18 13:57] LABS: CREATININE 1.14 mg/dL (0.55-1.02); POTASSIUM 4.1 mmol/L (3.5-5.1)
== END | disposition home or self-care (01) ==
LOC: RESCLI 00:23
PROVIDERS: Internal Medicine; ATTEND Student in an Organized Health Care Education/Training Program
DX: R00.1 Bradycardia, unspecified (principal); R60.0 Localized edema; Z78.0 Asymptomatic menopausal state; K21.9 Gastro-esophageal reflux disease without esophagitis; E55.9 Vitamin D deficiency, unspecified; K59.00 Constipation, unspecified; F03.90 Unspecified dementia, unspecified severity, without behavioral disturbance, psychotic disturbance, mood disturbance, and anxiety; E78.2 Mixed hyperlipidemia; I48.91 Unspecified atrial fibrillation; Z88.0 Allergy status to penicillin; Z88.2 Allergy status to sulfonamides; Z98.890 Other specified postprocedural states; Z90.710 Acquired absence of both cervix and uterus; Z79.01 Long term (current) use of anticoagulants; Z79.899 Other long term (current) drug therapy

== ENCOUNTER → 2022-06-05 | Outpatient (CLI) | payer OTHER ==
[2022-06-05 10:35] LABS: INTERNATIONAL NORM RATIO 2.5 (2.0-3.5)
== END | disposition home or self-care (01) ==
LOC: LAB 02:21
PROVIDERS: ATTEND Family Medicine
DX: Z79.899 Other long term (current) drug therapy (principal); I48.91 Unspecified atrial fibrillation

== ENCOUNTER → 2022-11-14 | Outpatient (CLI) | payer OTHER | END | disposition home or self-care (01) | LOC: RESCLI 01:00 | PROVIDERS: ATTEND Internal Medicine | DX: R60.0 Localized edema (principal); I48.91 Unspecified atrial fibrillation; E55.9 Vitamin D deficiency, unspecified; J30.9 Allergic rhinitis, unspecified; F03.90 Unspecified dementia, unspecified severity, without behavioral disturbance, psychotic disturbance, mood disturbance, and anxiety; E78.2 Mixed hyperlipidemia; R42 Dizziness and giddiness; E03.9 Hypothyroidism, unspecified; K21.9 Gastro-esophageal reflux disease without esophagitis; Z78.0 Asymptomatic menopausal state; Z90.710 Acquired absence of both cervix and uterus; Z98.890 Other specified postprocedural states; Z79.899 Other long term (current) drug therapy; Z88.0 Allergy status to penicillin; Z88.2 Allergy status to sulfonamides ==

== ENCOUNTER → 2023-01-23 | Outpatient (CLI) | payer OTHER ==
[2023-01-23 10:21] LABS: INTERNATIONAL NORM RATIO 1.2 (2.0-3.5)
== END | disposition home or self-care (01) ==
LOC: LAB 00:36
PROVIDERS: ATTEND Student in an Organized Health Care Education/Training Program
DX: I48.91 Unspecified atrial fibrillation (principal); Z79.899 Other long term (current) drug therapy; Z79.01 Long term (current) use of anticoagulants

== ENCOUNTER → 2023-01-30 | Outpatient (CLI) | payer OTHER ==
[2023-01-30 10:31] LABS: BILIRUBIN Negative (Negative); BLOOD Negative (Negative); CLARITY Clear (Clear); COLOR Yellow (Yellow); GLUCOSE Negative (Negative); KETONE Negative (Negative); LEUKO ESTERASE 1+ (Negative); NITRITE Negative (Negative); PH 6.5 (4.5-8.0); SPECIFIC GRAVITY 1.015 (1.001-1.030)
[2023-01-30 11:01] LABS: BACTERIA 3+; EPITHELIAL CELLS TNTC; HYALINE CAST 0-2; WBC 21-30 wbc/hpf (0-5)
== END | disposition home or self-care (01) ==
LOC: LAB 00:24
PROVIDERS: ATTEND Student in an Organized Health Care Education/Training Program
DX: R30.0 Dysuria (principal)

== ENCOUNTER → 2023-12-10 | Outpatient (CLI) | payer OTHER ==
[~2023-12-10] MED LIST changes: +ALENDRONATE SOD70 M1 PO; +ELIQUIS5 M1 PO; +FUROSEMIDE20 M1 PO; +Meclizine25 MG PO; +OMNICEF300 MG PO; -SYNTHROID,LEVO88 MCG PO; +Synthroid,Lev100 MCG PO; +TOPROL XL25 MG PO; +ZITHROMAX500 MG PO
== END | disposition home or self-care (01) ==
LOC: RESCLI 02:45
PROVIDERS: ATTEND Internal Medicine
DX: M81.0 Age-related osteoporosis without current pathological fracture (principal); E03.9 Hypothyroidism, unspecified; E78.5 Hyperlipidemia, unspecified; K21.9 Gastro-esophageal reflux disease without esophagitis; I11.0 Hypertensive heart disease with heart failure; I50.30 Unspecified diastolic (congestive) heart failure; J30.9 Allergic rhinitis, unspecified; F03.90 Unspecified dementia, unspecified severity, without behavioral disturbance, psychotic disturbance, mood disturbance, and anxiety; R60.0 Localized edema; I48.21 Permanent atrial fibrillation; N95.9 Unspecified menopausal and perimenopausal disorder; E78.2 Mixed hyperlipidemia; N76.0 Acute vaginitis; Z98.890 Other specified postprocedural states; Z79.899 Other long term (current) drug therapy; Z88.0 Allergy status to penicillin; Z88.8 Allergy status to other drugs, medicaments and biological substances; Z88.2 Allergy status to sulfonamides

== ENCOUNTER 2024-01-01 14:49 | Inpatient (IN) | payer OTHER ==
[~2024-01-01] VITALS: Ht 154.9 cm; Wt 73.7 kg
[~2024-01-01 14:49] MED LIST changes: +ZYVOX600 MG PO
[2024-01-01 14:50] VITALS: BP 131/71
[2024-01-01 15:35] VITALS: BP 109/76
[2024-01-01 15:39] LABS: ACT PARTIAL THROMBO TIME 36.7 SECONDS (20.0-32.1)
[2024-01-01 15:45] LABS: TOTAL PROTEIN 5.9 gm/dL (6.0-8.0)
[2024-01-01 16:18] LABS: BASO % 0.4 % (0.0-1.0); EOS # 0.1 10*3/uL (0.0-0.4); EOS % 1.7 % (1.0-4.0); HEMATOCRIT 33.5 % (37.0-47.0); LYMPH # 0.6 10*3/uL (1.3-4.4); LYMPH % 11.5 % (27.0-41.0); MEAN CELL VOLUME 96.3 fl (81.0-99.0); MEAN CORPUSCULAR HGB CONC 32.2 g/dl (33.0-37.0); MEAN PLATELET VOLUME 10.2 fl (9.6-12.3); MONO # 0.5 10*3/uL (0.1-1.0); MONO % 9.4 % (3.0-9.0); NEUT % 76.6 % (47.0-73.0); PLATELET COUNT AUTOMATED 60 10*3/uL (130-400); RED BLOOD COUNT 3.48 10*6/uL (4.10-5.10); RED CELL DISTRI WIDTH 14.8 % (0-14.5); WHITE BLOOD COUNT 5.2 10*3/uL (4.8-10.8)
[2024-01-01] MEDS ORDERED: AZITHROMYCIN 250 ML IV ONE (16:35)
[2024-01-01] MEDS ORDERED: Ceftriaxone Sodium 1 GM/10 ML SYR IV ONE (16:35)
[2024-01-01 17:28] LABS: BILIRUBIN Negative (Negative); BLOOD Negative (Negative); CLARITY Clear (Clear); COLOR Yellow (Yellow); GLUCOSE Negative (Negative); KETONE Negative (Negative); LEUKO ESTERASE 2+ (Negative); NITRITE Negative (Negative); SPECIFIC GRAVITY 1.015 (1.001-1.030); UROBILINOGEN 0.2 E.U./dl (0.0-1.0)
[2024-01-01 17:30] VITALS: BP 115/71
[2024-01-01 17:41] LABS: BACTERIA 1+; RBC 0-2 rbc/hpf (0-2); WBC 21-30 wbc/hpf (0-5)
[2024-01-01] MEDS ORDERED: FUROSEMIDE 40 MG/4 ML VIAL IV ONE (17:55)
[2024-01-01] MEDS ORDERED: ACETAMINOPHEN650 M5 PO (18:51)
[2024-01-01 18:54] VITALS: BP 121/65
[2024-01-01] MEDS ORDERED: ARTIFICIAL TEAR1514 OP (18:54)
[2024-01-01 20:00] VITALS: BP 127/67
[2024-01-01] MEDS ORDERED: BISACODYL 10 MG SUPP R PRN (20:40)
[2024-01-01] MEDS ORDERED: ACETAMINOPHEN 650 MG SUPP R PRN (20:40)
[2024-01-01] MEDS ORDERED: Ondansetron Hydrochloride 4 MG/2 ML VIAL IV PRN (20:40)
[2024-01-01] MEDS ORDERED: BISACODYL 5 MG TAB PO PRN (20:40)
[2024-01-01] MEDS ORDERED: ACETAMINOPHEN 325 MG TAB PO PRN (20:40)
[2024-01-01] MEDS ORDERED: Magnesium Hydroxide 30 ML UDC PO PRN (20:40)
[2024-01-01] MEDS ORDERED: Acetaminophen/Hydrocodone 5 MG/325 MG TABLET PO PRN (20:40)
[2024-01-01] MEDS ORDERED: ASPIRIN 325 MG TAB PO ONE (21:15)
[2024-01-01] MEDS ORDERED: SIMVASTATIN 20 MG TAB PO SCH (22:00)
[2024-01-01] MEDS ORDERED: APIXABAN 5 MG TAB PO SCH (22:00)
[2024-01-01] MEDS ORDERED: RISPERIDONE 0.5 MG TAB PO SCH (22:00)
[2024-01-02 05:37] LABS: ALKALINE PHOSPHATASE 56 U/L (46-116); BUN 32 mg/dl (9-23); CHLORIDE 104 mmol/L (98-107); POTASSIUM 3.6 mmol/L (3.4-5.1); SGPT/ALT 11 U/L (5-49); TOTAL PROTEIN 5.2 gm/dL (6.0-8.0)
[2024-01-02] MEDS ORDERED: Levothyroxine Sodium 100 MCG TAB PO SCH (06:00)
[2024-01-02] MEDS ORDERED: FUROSEMIDE 40 MG/4 ML VIAL IV SCH (06:00)
[2024-01-02 06:09] LABS: BASO % 0.6 % (0.0-1.0); EOS # 0.1 10*3/uL (0.0-0.4); EOS % 2.2 % (1.0-4.0); HEMATOCRIT 30.3 % (37.0-47.0); LYMPH # 0.6 10*3/uL (1.3-4.4); LYMPH % 15.2 % (27.0-41.0); MEAN CELL VOLUME 95.3 fl (81.0-99.0); MEAN CORPUSCULAR HGB 31.1 pg (27.0-31.0); MEAN CORPUSCULAR HGB CONC 32.7 g/dl (33.0-37.0); MEAN PLATELET VOLUME 10.7 fl (9.6-12.3); MONO # 0.5 10*3/uL (0.1-1.0); MONO % 14.6 % (3.0-9.0); NEUT # 2.4 10*3/uL (2.3-7.9); NEUT % 67.1 % (47.0-73.0); PLATELET COUNT AUTOMATED 52 10*3/uL (130-400); RED BLOOD COUNT 3.18 10*6/uL (4.10-5.10); RED CELL DISTRI WIDTH 14.6 % (0-14.5); WHITE BLOOD COUNT 3.6 10*3/uL (4.8-10.8)
[2024-01-02 06:41] VITALS: BP 131/42
[2024-01-02 08:00] VITALS: BP 113/71
[2024-01-02] MEDS ORDERED: ASPIRIN ENTERIC COATED 81 MG TAB PO SCH (10:00)
[2024-01-02] MEDS ORDERED: METOPROLOL SUCCINATE XR 25 MG TAB PO SCH (10:00)
[2024-01-02] MEDS ORDERED: Ceftriaxone Sodium 1 GM,IV 1 EA in SYRINGE INFUSION 10 ML IV SCH (16:00)
[2024-01-02] MEDS ORDERED: AZITHROMYCIN 250 ML IV SCH (17:00)
[2024-01-02 20:00] VITALS: BP 123/66
[2024-01-02 22:50] VITALS: BP 121/73
[2024-01-03 04:06] LABS: HEMATOCRIT 32.7 % (37.0-47.0); MEAN CELL VOLUME 97.6 fl (81.0-99.0); MEAN CORPUSCULAR HGB 30.7 pg (27.0-31.0); MEAN CORPUSCULAR HGB CONC 31.5 g/dl (33.0-37.0); MEAN PLATELET VOLUME 10.7 fl (9.6-12.3); PLATELET COUNT AUTOMATED 48 10*3/uL (130-400); RED BLOOD COUNT 3.35 10*6/uL (4.10-5.10); RED CELL DISTRI WIDTH 14.6 % (0-14.5); WHITE BLOOD COUNT 4.7 10*3/uL (4.8-10.8)
[2024-01-03 04:13] LABS: MANUAL DIFF REFLEX YES
[2024-01-03 04:27] LABS: BUN 30 mg/dl (9-23); CHLORIDE 102 mmol/L (98-107); POTASSIUM 3.6 mmol/L (3.4-5.1)
[2024-01-03 04:40] LABS: PLATELET SUFFICIENCY LOW (NORMAL); TOTAL CELLS COUNTED 100 #CELLS
[2024-01-03 08:00] VITALS: BP 125/54
[2024-01-03] MEDS ORDERED: Cefepime Hydrochloride 1 GM in SODIUM CHLORIDE 0.9% 50 ML IV SCH (10:00)
[2024-01-03 12:00] VITALS: BP 100/59
[2024-01-03 16:00] VITALS: BP 107/51
[2024-01-03 20:28] VITALS: BP 116/56
[2024-01-04] VITALS: BP 125/59
[2024-01-04 06:06] LABS: BUN 26 mg/dl (9-23); CHLORIDE 101 mmol/L (98-107); POTASSIUM 3.5 mmol/L (3.4-5.1)
[2024-01-04 06:13] LABS: HEMATOCRIT 30.5 % (37.0-47.0); MEAN CELL VOLUME 97.1 fl (81.0-99.0); MEAN CORPUSCULAR HGB 30.9 pg (27.0-31.0); MEAN CORPUSCULAR HGB CONC 31.8 g/dl (33.0-37.0); MEAN PLATELET VOLUME 12.2 fl (9.6-12.3); PLATELET COUNT AUTOMATED 39 10*3/uL (130-400); RED BLOOD COUNT 3.14 10*6/uL (4.10-5.10); RED CELL DISTRI WIDTH 14.6 % (0-14.5)
[2024-01-04 06:14] LABS: MANUAL DIFF REFLEX YES
[2024-01-04 07:30] LABS: BURR CELLS FEW; OVALOCYTES FEW; POLYCHROMASIA SLIGHT; TOTAL CELLS COUNTED 100 #CELLS
[2024-01-04 07:31] LABS: PLATELET SUFFICIENCY LOW (NORMAL)
[2024-01-04 07:58] VITALS: BP 92/63
[2024-01-04 12:00] VITALS: BP 107/53
[2024-01-04] MEDS ORDERED: SODIUM CHLORIDE 0.9% 500 ML IV ONE (12:00)
[2024-01-04 16:00] VITALS: BP 108/60
[2024-01-04 20:00] VITALS: BP 122/48
[2024-01-04] MEDS ORDERED: FLUTICASONE PROPIONATE Nasal 16 Gm spray NAS SCH (22:00)
[2024-01-05] VITALS: BP 124/52
[2024-01-05 05:10] LABS: BUN 23 mg/dl (9-23); CHLORIDE 100 mmol/L (98-107); POTASSIUM 3.6 mmol/L (3.4-5.1)
[2024-01-05 06:24] LABS: HEMATOCRIT 32.3 % (37.0-47.0); MEAN CELL VOLUME 97.6 fl (81.0-99.0); MEAN CORPUSCULAR HGB 30.5 pg (27.0-31.0); MEAN CORPUSCULAR HGB CONC 31.3 g/dl (33.0-37.0); MEAN PLATELET VOLUME 12.7 fl (9.6-12.3); PLATELET COUNT AUTOMATED 46 10*3/uL (130-400); RED BLOOD COUNT 3.31 10*6/uL (4.10-5.10); RED CELL DISTRI WIDTH 14.3 % (0-14.5)
[2024-01-05 06:41] LABS: MANUAL DIFF REFLEX YES
[2024-01-05 08:00] VITALS: BP 133/75
[2024-01-05 08:50] LABS: ATYPICAL LYMPHS 1 % (0-0); TOTAL CELLS COUNTED 100 #CELLS
[2024-01-05 08:51] LABS: PLATELET SUFFICIENCY LOW (NORMAL)
[2024-01-05] MEDS ORDERED: FUROSEMIDE 20 MG/2 ML VIAL IV ONE (09:40)
[2024-01-05 12:00] VITALS: BP 114/67
[2024-01-05 16:00] VITALS: BP 113/57
[2024-01-05 20:00] VITALS: BP 101/56
[2024-01-06] VITALS: BP 114/65
[2024-01-06] MEDS ORDERED: FOAM BANDAGE 1 EACH BANDAGE T ONE (04:26)
[2024-01-06 08:00] VITALS: BP 123/64
[2024-01-06 10:18] LABS: HEMATOCRIT 31.8 % (37.0-47.0); MANUAL DIFF REFLEX YES; MEAN CORPUSCULAR HGB 30.9 pg (27.0-31.0); MEAN CORPUSCULAR HGB CONC 33.3 g/dl (33.0-37.0); MEAN PLATELET VOLUME 12.1 fl (9.6-12.3); RED BLOOD COUNT 3.43 10*6/uL (4.10-5.10); RED CELL DISTRI WIDTH 14.4 % (0-14.5); WHITE BLOOD COUNT 4.2 10*3/uL (4.8-10.8)
[2024-01-06 10:19] LABS: MEAN CELL VOLUME 92.7 fl (81.0-99.0); PLATELET COUNT AUTOMATED 62 10*3/uL (130-400)
[2024-01-06 10:30] LABS: BASOPHILS 2 % (0-1); BURR CELLS FEW; OVALOCYTES FEW; PLATELET SUFFICIENCY LOW (NORMAL); POLYCHROMASIA SLIGHT; TOTAL CELLS COUNTED 100 #CELLS
[2024-01-06] MEDS ORDERED: LEVOFLOXACIN750 M2 PO (11:25)
== END 2024-01-06 13:20 | disposition home health service (06) | DRG 291 ==
LOC: ED 14:49 → EDHOLD 18:34 → 4E 01-02 20:30
PROVIDERS: Internal Medicine; Student in an Organized Health Care Education/Training Program; ADMIT Internal Medicine; ATTEND Internal Medicine
DX: I13.0 Hypertensive heart and chronic kidney disease with heart failure and stage 1 through stage 4 chronic kidney disease, or unspecified chronic kidney disease (principal); E43 Unspecified severe protein-calorie malnutrition; J18.9 Pneumonia, unspecified organism; I24.89 Other forms of acute ischemic heart disease; N39.0 Urinary tract infection, site not specified; I48.11 Longstanding persistent atrial fibrillation; D61.818 Other pancytopenia; I50.9 Heart failure, unspecified; E78.5 Hyperlipidemia, unspecified; E03.9 Hypothyroidism, unspecified; N18.31 Chronic kidney disease, stage 3a; R73.9 Hyperglycemia, unspecified; E66.9 Obesity, unspecified; K44.9 Diaphragmatic hernia without obstruction or gangrene; B96.5 Pseudomonas (aeruginosa) (mallei) (pseudomallei) as the cause of diseases classified elsewhere; B95.2 Enterococcus as the cause of diseases classified elsewhere; Z79.899 Other long term (current) drug therapy; Z79.01 Long term (current) use of anticoagulants; Z79.2 Long term (current) use of antibiotics; Z88.0 Allergy status to penicillin; Z88.2 Allergy status to sulfonamides; Z90.710 Acquired absence of both cervix and uterus; Z82.5 Family history of asthma and other chronic lower respiratory diseases; Z68.32 Body mass index [BMI] 32.0-32.9, adult

== ENCOUNTER 2024-02-16 11:18 | Emergency (ER) | payer OTHER ==
[~2024-02-16] VITALS: Ht 160 cm; Wt 71.7 kg
[~2024-02-16 11:18] MED LIST changes: +ACETAMINOPHEN650 M5 PO; +ARTIFICIAL TEAR1514 OP; +LEVOFLOXACIN750 M2 PO
[2024-02-16 13:30] LABS: BASO % 0.4 % (0.0-1.0); EOS # 0.1 10*3/uL (0.0-0.4); EOS % 1.3 % (1.0-4.0); HEMATOCRIT 38.9 % (37.0-47.0); LYMPH # 0.7 10*3/uL (1.3-4.4); LYMPH % 8.5 % (27.0-41.0); MEAN CELL VOLUME 99.2 fl (81.0-99.0); MEAN CORPUSCULAR HGB 30.9 pg (27.0-31.0); MEAN CORPUSCULAR HGB CONC 31.1 g/dl (33.0-37.0); MONO # 0.8 10*3/uL (0.1-1.0); MONO % 9.6 % (3.0-9.0); NEUT # 6.3 10*3/uL (2.3-7.9); NEUT % 79.9 % (47.0-73.0); PLATELET COUNT AUTOMATED 173 10*3/uL (130-400); RED BLOOD COUNT 3.92 10*6/uL (4.10-5.10); RED CELL DISTRI WIDTH 15.7 % (0-14.5); WHITE BLOOD COUNT 7.9 10*3/uL (4.8-10.8)
[2024-02-16 13:51] LABS: ALKALINE PHOSPHATASE 76 U/L (46-116); BUN 30 mg/dl (9-23); CHLORIDE 98 mmol/L (98-107); LIPASE 37 U/L (12-53); POTASSIUM 4.3 mmol/L (3.4-5.1); TOTAL PROTEIN 6.6 gm/dL (6.0-8.0)
[2024-02-16 13:52] LABS: ACT PARTIAL THROMBO TIME 31.9 SECONDS (20.0-32.1)
[2024-02-16 14:08] LABS: SGPT/ALT < 7 U/L (5-49)
[2024-02-16 14:17] LABS: BILIRUBIN Negative (Negative); BLOOD 1+ (Negative); CLARITY Clear (Clear); COLOR Yellow (Yellow); GLUCOSE Negative (Negative); KETONE Negative (Negative); LEUKO ESTERASE Negative (Negative); NITRITE Negative (Negative); PH 6.5 (4.5-8.0)
[2024-02-18] MEDS ORDERED: MACROBID100 M1 PO (11:26)
== END 2024-02-16 18:30 | disposition home or self-care (01) ==
LOC: ED 11:18
PROVIDERS: Emergency Medicine
DX: K59.00 Constipation, unspecified (principal); K62.5 Hemorrhage of anus and rectum; I48.91 Unspecified atrial fibrillation; I50.9 Heart failure, unspecified; R73.9 Hyperglycemia, unspecified; E78.5 Hyperlipidemia, unspecified; E03.9 Hypothyroidism, unspecified; D64.9 Anemia, unspecified; I13.0 Hypertensive heart and chronic kidney disease with heart failure and stage 1 through stage 4 chronic kidney disease, or unspecified chronic kidney disease; N18.9 Chronic kidney disease, unspecified; E78.00 Pure hypercholesterolemia, unspecified; Z88.0 Allergy status to penicillin; Z88.2 Allergy status to sulfonamides; Z90.710 Acquired absence of both cervix and uterus; Z98.890 Other specified postprocedural states; Z90.49 Acquired absence of other specified parts of digestive tract; Z79.899 Other long term (current) drug therapy

== ENCOUNTER → 2024-03-18 | Outpatient (CLI) | payer OTHER ==
[~2024-03-18] MED LIST changes: +MACROBID100 M1 PO
[2024-03-18 10:39] LABS: BILIRUBIN Negative (Negative); BLOOD Negative (Negative); CLARITY Cloudy (Clear); COLOR Yellow (Yellow); GLUCOSE Negative (Negative); KETONE Negative (Negative); LEUKO ESTERASE 2+ (Negative); NITRITE Negative (Negative); SPECIFIC GRAVITY 1.015 (1.001-1.030); UROBILINOGEN 0.2 E.U./dl (0.0-1.0)
[2024-03-18 10:57] LABS: BACTERIA 3+; EPITHELIAL CELLS 21-30; WBC 21-30 wbc/hpf (0-5)
== END | disposition home or self-care (01) ==
LOC: LAB 03-16 13:31
PROVIDERS: ATTEND Student in an Organized Health Care Education/Training Program
DX: N39.0 Urinary tract infection, site not specified (principal)

== ENCOUNTER 2024-03-28 15:05 | Inpatient (IN) | payer OTHER ==
[~2024-03-28] VITALS: Ht 160 cm; Wt 69.4 kg
[~2024-03-28 15:05] MED LIST changes: +CLINDAMYCIN HC300 MG PO
[2024-03-28 15:28] VITALS: BP 111/63
[2024-03-28 16:00] LABS: BASO % 0.3 % (0.0-1.0); EOS # 0.1 10*3/uL (0.0-0.4); EOS % 1.4 % (1.0-4.0); HEMATOCRIT 37.4 % (37.0-47.0); LYMPH # 0.7 10*3/uL (1.3-4.4); LYMPH % 12.4 % (27.0-41.0); MEAN CELL VOLUME 96.9 fl (81.0-99.0); MEAN CORPUSCULAR HGB 30.3 pg (27.0-31.0); MEAN CORPUSCULAR HGB CONC 31.3 g/dl (33.0-37.0); MEAN PLATELET VOLUME 10.8 fl (9.6-12.3); MONO # 0.6 10*3/uL (0.1-1.0); MONO % 10.4 % (3.0-9.0); NEUT # 4.4 10*3/uL (2.3-7.9); NEUT % 75.3 % (47.0-73.0); PLATELET COUNT AUTOMATED 147 10*3/uL (130-400); RED BLOOD COUNT 3.86 10*6/uL (4.10-5.10); RED CELL DISTRI WIDTH 15.2 % (0-14.5); WHITE BLOOD COUNT 5.9 10*3/uL (4.8-10.8)
[2024-03-28 16:10] LABS: ACT PARTIAL THROMBO TIME 30.3 SECONDS (20.0-32.1)
[2024-03-28 16:27] LABS: ALKALINE PHOSPHATASE 81 U/L (46-116); BUN 23 mg/dl (9-23); CHLORIDE 97 mmol/L (98-107); POTASSIUM 3.8 mmol/L (3.4-5.1); SGPT/ALT 20 U/L (5-49); TOTAL PROTEIN 6.2 gm/dL (6.0-8.0)
[2024-03-28 17:31] LABS: BILIRUBIN Negative (Negative); BLOOD Negative (Negative); CLARITY Clear (Clear); COLOR Yellow (Yellow); GLUCOSE Negative (Negative); KETONE Negative (Negative); LEUKO ESTERASE 1+ (Negative); NITRITE Negative (Negative); PH 6.5 (4.5-8.0); SPECIFIC GRAVITY 1.015 (1.001-1.030)
[2024-03-28 17:38] LABS: BACTERIA 1+
[2024-03-28] MEDS ORDERED: Ceftriaxone Sodium 1 GM/10 ML SYR IV ONE (18:25)
[2024-03-28] MEDS ORDERED: BISACODYL 5 MG TAB PO PRN (18:45)
[2024-03-28] MEDS ORDERED: Magnesium Hydroxide 30 ML UDC PO PRN ×2 (18:45→19:40)
[2024-03-28] MEDS ORDERED: ACETAMINOPHEN 325 MG TAB PO PRN ×2 (18:45→19:40)
[2024-03-28] MEDS ORDERED: Acetaminophen/Hydrocodone 5 MG/325 MG TABLET PO PRN (18:45)
[2024-03-28] MEDS ORDERED: Ondansetron Hydrochloride 4 MG/2 ML VIAL IV PRN ×2 (18:45→19:40)
[2024-03-28] MEDS ORDERED: BISACODYL 10 MG SUPP R PRN (18:45)
[2024-03-28 19:58] VITALS: BP 143/79
[2024-03-28] MEDS ORDERED: Glycerin/Hypromellose/Polyet 300 DRP BOT OPH PRN (21:05)
[2024-03-28 21:45] VITALS: BP 137/66
[2024-03-28] MEDS ORDERED: APIXABAN 5 MG TAB PO SCH (22:00)
[2024-03-28] MEDS ORDERED: RISPERIDONE 0.5 MG TAB PO SCH (22:00)
[2024-03-28] MEDS ORDERED: SIMVASTATIN 20 MG TAB PO SCH (22:00)
[2024-03-29] MEDS ORDERED: Albuterol Sulf/Ipratropium 3 ML VIAL NEB SCH (02:35)
[2024-03-29 04:00] VITALS: BP 127/66
[2024-03-29] MEDS ORDERED: Levothyroxine Sodium 100 MCG TAB PO SCH (06:00)
[2024-03-29 06:34] LABS: BASO % 0.6 % (0.0-1.0); EOS # 0.1 10*3/uL (0.0-0.4); EOS % 1.6 % (1.0-4.0); HEMATOCRIT 34.2 % (37.0-47.0); LYMPH # 0.8 10*3/uL (1.3-4.4); LYMPH % 15.1 % (27.0-41.0); MEAN CELL VOLUME 95.8 fl (81.0-99.0); MEAN CORPUSCULAR HGB 30.8 pg (27.0-31.0); MEAN CORPUSCULAR HGB CONC 32.2 g/dl (33.0-37.0); MEAN PLATELET VOLUME 10.7 fl (9.6-12.3); MONO # 0.7 10*3/uL (0.1-1.0); MONO % 14.1 % (3.0-9.0); NEUT # 3.5 10*3/uL (2.3-7.9); NEUT % 68.2 % (47.0-73.0); PLATELET COUNT AUTOMATED 141 10*3/uL (130-400); RED BLOOD COUNT 3.57 10*6/uL (4.10-5.10); RED CELL DISTRI WIDTH 15.2 % (0-14.5); WHITE BLOOD COUNT 5.1 10*3/uL (4.8-10.8)
[2024-03-29 07:28] LABS: BUN 21 mg/dl (9-23); CHLORIDE 99 mmol/L (98-107); CHOLESTEROL 137 mg/dL (<200); FREE T4 1.72 ng/dl (0.89-1.76); LDL CHOLESTEROL 75 mg/dL (9-159); POTASSIUM 3.6 mmol/L (3.4-5.1); TRIGLYCERIDES 70 mg/dl (<150)
[2024-03-29 07:34] LABS: VITAMIN D, 25-HYDROXY 75.1 ng/mL (30-100)
[2024-03-29 08:00] VITALS: BP 143/85
[2024-03-29] MEDS ORDERED: METOPROLOL SUCCINATE XR 25 MG TAB PO SCH (10:00)
[2024-03-29 12:00] VITALS: BP 139/86
[2024-03-29] MEDS ORDERED: FOAM BANDAGE HEEL T ONE ×2 (14:02→17:05)
[2024-03-29 16:00] VITALS: BP 112/54
[2024-03-29 20:00] VITALS: BP 120/60
[2024-03-29] MEDS ORDERED: Ceftriaxone Sodium 1 GM in SYRINGE INFUSION 10 ML IV SCH (20:00)
[2024-03-29] MEDS ORDERED: Bacitracin Zinc 14 GM TUBE T SCH (22:00)
[2024-03-30] VITALS: BP 117/58
[2024-03-30 06:38] LABS: BASO % 0.4 % (0.0-1.0); EOS # 0.1 10*3/uL (0.0-0.4); EOS % 1.6 % (1.0-4.0); HEMATOCRIT 33.2 % (37.0-47.0); LYMPH # 0.7 10*3/uL (1.3-4.4); MEAN CELL VOLUME 95.1 fl (81.0-99.0); MEAN CORPUSCULAR HGB 30.9 pg (27.0-31.0); MEAN CORPUSCULAR HGB CONC 32.5 g/dl (33.0-37.0); MEAN PLATELET VOLUME 10.8 fl (9.6-12.3); MONO # 0.7 10*3/uL (0.1-1.0); MONO % 13.4 % (3.0-9.0); NEUT # 3.7 10*3/uL (2.3-7.9); NEUT % 71.4 % (47.0-73.0); PLATELET COUNT AUTOMATED 142 10*3/uL (130-400); RED BLOOD COUNT 3.49 10*6/uL (4.10-5.10); RED CELL DISTRI WIDTH 15.4 % (0-14.5); WHITE BLOOD COUNT 5.1 10*3/uL (4.8-10.8)
[2024-03-30 06:53] LABS: BUN 23 mg/dl (9-23); CHLORIDE 100 mmol/L (98-107); POTASSIUM 4.3 mmol/L (3.4-5.1)
[2024-03-30 08:00] VITALS: BP 123/50
[2024-03-30 12:00] VITALS: BP 122/93
[2024-03-30 16:00] VITALS: BP 115/78
[2024-03-30] MEDS ORDERED: HEEL PROTECTOR DEVICE ONE (17:31)
[2024-03-30 20:00] VITALS: BP 130/60
[2024-03-31] VITALS: BP 110/52
[2024-03-31 06:31] LABS: BASO % 0.5 % (0.0-1.0); EOS # 0.1 10*3/uL (0.0-0.4); EOS % 1.9 % (1.0-4.0); HEMATOCRIT 35.2 % (37.0-47.0); LYMPH # 0.6 10*3/uL (1.3-4.4); LYMPH % 11.3 % (27.0-41.0); MEAN CELL VOLUME 97.5 fl (81.0-99.0); MEAN CORPUSCULAR HGB 31.3 pg (27.0-31.0); MEAN CORPUSCULAR HGB CONC 32.1 g/dl (33.0-37.0); MEAN PLATELET VOLUME 10.4 fl (9.6-12.3); MONO # 0.9 10*3/uL (0.1-1.0); MONO % 15.4 % (3.0-9.0); NEUT % 70.5 % (47.0-73.0); PLATELET COUNT AUTOMATED 134 10*3/uL (130-400); RED BLOOD COUNT 3.61 10*6/uL (4.10-5.10); RED CELL DISTRI WIDTH 15.4 % (0-14.5); WHITE BLOOD COUNT 5.7 10*3/uL (4.8-10.8)
[2024-03-31 08:00] VITALS: BP 135/68
[2024-03-31 12:00] VITALS: BP 142/79
[2024-03-31 15:23] VITALS: BP 154/86
[2024-03-31 20:00] VITALS: BP 154/91
[2024-04-01] VITALS: BP 120/64
[2024-04-01 08:00] VITALS: BP 126/54; BP 156/82
[2024-04-01 12:00] VITALS: BP 118/80
[2024-04-01 16:00] VITALS: BP 121/63
[2024-04-01 20:00] VITALS: BP 116/58
[2024-04-02] VITALS: BP 119/80
[2024-04-02 08:00] VITALS: BP 113/53
[2024-04-02] MEDS ORDERED: BACITRACIN28.4 GM T (11:50)
[2024-04-02 12:00] VITALS: BP 122/52
== END 2024-04-02 18:36 | DRG 689 ==
LOC: ED 15:05 → EDHOLD 18:38 → 4E 18:38
PROVIDERS: Internal Medicine; Student in an Organized Health Care Education/Training Program; ADMIT Family Medicine; ATTEND Family Medicine
DX: N30.00 Acute cystitis without hematuria (principal); G93.41 Metabolic encephalopathy; N17.0 Acute kidney failure with tubular necrosis; E44.1 Mild protein-calorie malnutrition; J96.10 Chronic respiratory failure, unspecified whether with hypoxia or hypercapnia; I50.32 Chronic diastolic (congestive) heart failure; I48.21 Permanent atrial fibrillation; I13.0 Hypertensive heart and chronic kidney disease with heart failure and stage 1 through stage 4 chronic kidney disease, or unspecified chronic kidney disease; I24.89 Other forms of acute ischemic heart disease; B97.4 Respiratory syncytial virus as the cause of diseases classified elsewhere; B33.8 Other specified viral diseases; E83.52 Hypercalcemia; N18.31 Chronic kidney disease, stage 3a; E66.9 Obesity, unspecified; E03.9 Hypothyroidism, unspecified; D64.9 Anemia, unspecified; R73.9 Hyperglycemia, unspecified; I48.0 Paroxysmal atrial fibrillation; R29.6 Repeated falls; K44.9 Diaphragmatic hernia without obstruction or gangrene; I45.10 Unspecified right bundle-branch block; I27.20 Pulmonary hypertension, unspecified; I36.1 Nonrheumatic tricuspid (valve) insufficiency; I25.10 Atherosclerotic heart disease of native coronary artery without angina pectoris; Z87.440 Personal history of urinary (tract) infections; Z88.0 Allergy status to penicillin; Z88.2 Allergy status to sulfonamides; Z79.899 Other long term (current) drug therapy; Z79.01 Long term (current) use of anticoagulants; Z79.2 Long term (current) use of antibiotics; Z90.710 Acquired absence of both cervix and uterus; Z82.5 Family history of asthma and other chronic lower respiratory diseases; Z68.27 Body mass index [BMI] 27.0-27.9, adult

== ENCOUNTER 2024-05-29 07:54 | Emergency (ER) | payer OTHER ==
[~2024-05-29] VITALS: Ht 160 cm; Wt 72.6 kg
[~2024-05-29 07:54] MED LIST changes: +BACITRACIN28.4 GM T
[2024-05-29] MEDS ORDERED: BUMETANIDE2 MG PO (08:06)
[2024-05-29] MEDS ORDERED: Metoclopramide Hydrochloride 10 MG/2 ML VIAL IV ONE (08:15)
[2024-05-29] MEDS ORDERED: diphenhydrAMINE hydrochloride 50 MG/ML VIAL IV ONE (08:15)
[2024-05-29 08:49] LABS: BASO % 0.4 % (0.0-1.0); EOS # 0.1 10*3/uL (0.0-0.4); EOS % 1.5 % (1.0-4.0); HEMATOCRIT 39.7 % (37.0-47.0); MEAN CELL VOLUME 95.7 fl (81.0-99.0); MEAN CORPUSCULAR HGB 29.9 pg (27.0-31.0); MEAN CORPUSCULAR HGB CONC 31.2 g/dl (33.0-37.0); MEAN PLATELET VOLUME 9.8 fl (9.6-12.3); MONO # 0.5 10*3/uL (0.1-1.0); MONO % 11.4 % (3.0-9.0); NEUT # 3.3 10*3/uL (2.3-7.9); NEUT % 70.9 % (47.0-73.0); PLATELET COUNT AUTOMATED 166 10*3/uL (130-400); RED BLOOD COUNT 4.15 10*6/uL (4.10-5.10); RED CELL DISTRI WIDTH 14.8 % (0-14.5); WHITE BLOOD COUNT 4.6 10*3/uL (4.8-10.8)
[2024-05-29 09:08] LABS: BUN 24 mg/dl (9-23); CHLORIDE 97 mmol/L (98-107); POTASSIUM 3.8 mmol/L (3.4-5.1)
[2024-05-29] MEDS ORDERED: AVPAK AZITHROM250 M1 PO (09:25)
== END 2024-05-29 10:19 | disposition home or self-care (01) ==
LOC: ED 07:54
PROVIDERS: Emergency Medicine
DX: R51.9 Headache, unspecified (principal); Z20.822 Contact with and (suspected) exposure to COVID-19; J32.9 Chronic sinusitis, unspecified; M54.42 Lumbago with sciatica, left side; I48.91 Unspecified atrial fibrillation; R53.1 Weakness; R11.0 Nausea; E78.00 Pure hypercholesterolemia, unspecified; I11.0 Hypertensive heart disease with heart failure; I50.9 Heart failure, unspecified; Z88.0 Allergy status to penicillin; Z88.2 Allergy status to sulfonamides; Z90.710 Acquired absence of both cervix and uterus; Z98.890 Other specified postprocedural states; Z90.49 Acquired absence of other specified parts of digestive tract

== ENCOUNTER 2024-08-26 06:38 | Emergency (ER) | payer OTHER ==
[~2024-08-26] VITALS: Ht 162.5 cm; Wt 70.3 kg
[~2024-08-26 06:38] MED LIST changes: +AVPAK AZITHROM250 M1 PO; +BUMETANIDE2 MG PO
== END 2024-08-26 08:51 | disposition short-term general hospital (02) ==
LOC: ED 06:38
DX: S06.6X0A Traumatic subarachnoid hemorrhage without loss of consciousness, initial encounter (principal); I48.91 Unspecified atrial fibrillation; Z88.2 Allergy status to sulfonamides; Z79.899 Other long term (current) drug therapy; Z90.710 Acquired absence of both cervix and uterus; Z90.49 Acquired absence of other specified parts of digestive tract; W18.09XA Striking against other object with subsequent fall, initial encounter; Y93.89 Activity, other specified; Y93.01 Activity, walking, marching and hiking; Y92.89 Other specified places as the place of occurrence of the external cause; Y99.8 Other external cause status

== ENCOUNTER 2024-10-02 08:38 | Emergency (ER) | payer OTHER ==
[~2024-10-02] VITALS: Ht 160 cm; Wt 68.0 kg
[2024-10-02] MEDS ORDERED: Ondansetron Hydrochloride 4 MG/2 ML VIAL IV ONE (09:00)
[2024-10-02] MEDS ORDERED: fentaNYL CITRATE/PF 50 MCG/ML SYRINGE IV ONE (09:00)
[2024-10-02 09:24] LABS: BASO % 0.4 % (0.0-1.0); EOS % 0.5 % (1.0-4.0); HEMATOCRIT 39.4 % (37.0-47.0); MEAN CELL VOLUME 96.6 fl (81.0-99.0); MEAN CORPUSCULAR HGB 30.1 pg (27.0-31.0); MEAN CORPUSCULAR HGB CONC 31.2 g/dl (33.0-37.0); MONO # 0.6 10*3/uL (0.1-1.0); MONO % 8.2 % (3.0-9.0); NEUT # 6.2 10*3/uL (2.3-7.9); NEUT % 81.7 % (47.0-73.0); PLATELET COUNT AUTOMATED 207 10*3/uL (130-400); RED BLOOD COUNT 4.08 10*6/uL (4.10-5.10); RED CELL DISTRI WIDTH 14.5 % (0-14.5); WHITE BLOOD COUNT 7.6 10*3/uL (4.8-10.8)
[2024-10-02 09:37] LABS: BUN 29 mg/dl (9-23); CHLORIDE 100 mmol/L (98-107); POTASSIUM 3.6 mmol/L (3.4-5.1)
[2024-10-02] MEDS ORDERED: AZITHROMYCIN 250 MG TAB PO ONE (10:35)
== END 2024-10-02 10:51 | disposition home or self-care (01) ==
LOC: ED 08:38
PROVIDERS: Emergency Medicine
DX: J40 Bronchitis, not specified as acute or chronic (principal); J32.9 Chronic sinusitis, unspecified; I48.91 Unspecified atrial fibrillation; I11.0 Hypertensive heart disease with heart failure; I50.9 Heart failure, unspecified; E78.5 Hyperlipidemia, unspecified; R51.9 Headache, unspecified; Z88.2 Allergy status to sulfonamides; Z79.899 Other long term (current) drug therapy; Z90.710 Acquired absence of both cervix and uterus; Z98.890 Other specified postprocedural states; Z90.49 Acquired absence of other specified parts of digestive tract